=== PATIENT | female | born 1955 | race Caucasian/White ===

== ENCOUNTER → 2016-06-20 | Outpatient (CLI) | payer BC ==
[~2016-06-20] MED LIST: ANT25 PO; BRIN1SUS OPB; BUTA1CAP20 PO; CALCTAB7 PO; CHOLTAB3 PO; CLTP PO; DICL1GEL12 TOP; DICL1GEL28 TOP; DOXE50CA3 PO; ERGO1TAB10 PO; FLUT0.15 NAE; HYDR0.5T PO; HYDR200T5 PO; LSN/10125 PO; MELO15TA4 PO; METH-307 PO; METO-157 PO; MOME50SP5 NAE; MULT-506 PO; NAPR-1169 PO; ONDA4TAB10 SL; OXYC1TAB3 PO; PRLSR20 PO; PRN10125 PO; SNQ50 PO; TIMO0.5S2 OPB; TMPXEOPS OPB; TRAM-10 PO; TRAV0.00 OPB; VLM2 PO
[2016-06-20 17:31] LABS: BASO % 0.4 %; BASO ABS # 0.03 K/uL (0-0.2); COMPLETE YES; HEMATOCRIT 42.2 % (37-47); IG% 0.1 %; LYMPH % 14.7 %; LYMPH ABS # 1.13 K/uL (1.2-3.4); MEAN CELL VOLUME 91.5 fL (80-100); MEAN CORPUSCULAR HEMOGLOBIN 31.5 pg (25-34); MEAN CORPUSCULAR HGB CONC 34.4 g/dl (32-36); MONO % 8.1 %; NEUT % 72.7 %; PLATELET COUNT 182 K/uL (130-400); RED BLOOD COUNT 4.61 M/uL (4.2-5.4); WHITE BLOOD COUNT 7.67 K/uL (4.8-10.8)
[2016-06-20 17:41] LABS: ALT/SGPT 33 U/L (12-78); AST/SGOT 17 U/L (15-37); CREATININE 0.79 mg/dl (0.60-1.20)
[2016-06-20 17:43] LABS: ALKALINE PHOSPHATASE 99 U/L (45-117)
== END | disposition home or self-care (01) ==
LOC: C.LABBFT 11:40
PROVIDERS: ATTEND Internal Medicine Rheumatology
DX: M35.00 Sjogren syndrome, unspecified (principal); L93.2 Other local lupus erythematosus; Z79.899 Other long term (current) drug therapy; Z79.1 Long term (current) use of non-steroidal anti-inflammatories (NSAID)

== ENCOUNTER → 2016-07-18 | Outpatient (CLI) | payer BC ==
--- NOTE | 2016-07-18 10:58 | DIAGNOSTIC IMAGING REPORT ---
LEFT KNEE 3 VIEWS CLINICAL HISTORY: Bilateral knee pain. Sjogren's syndrome. Lupus. COMPARISON: Knee radiograph January 06, 2012. FINDINGS: Alignment of left knee is anatomic. There is no fracture or joint effusion. There is mild medial compartment joint space narrowing. No erosions are identified. IMPRESSION: 1. Mild medial compartment osteoarthritis of the left knee. 2. No fracture or joint effusion. No erosions. Electronically signed by: Farzad Sandy M.D. 07/18/2016 10:56 AM Dictated Date/Time: 07/18/2016 10:56 AM
--- NOTE | 2016-07-18 10:59 | DIAGNOSTIC IMAGING REPORT ---
RIGHT KNEE 3 VIEWS CLINICAL HISTORY: Sjogren syndrome. Cutaneous lupus erythematosus. COMPARISON: Knee radiographs January 06, 2012. FINDINGS: Alignment of the right knee is anatomic. There is no joint effusion or fracture. There is minimal medial compartment joint space narrowing. There is minimal narrowing of the lateral aspect of the patellofemoral compartment. No erosions are identified. IMPRESSION: 1. Minimal osteoarthritis of the medial and patellofemoral compartments of the right knee. 2. No joint effusion. No erosions. Electronically signed by: Farzad Sandy M.D. 07/18/2016 10:57 AM Dictated Date/Time: 07/18/2016 10:57 AM
== END | disposition home or self-care (01) ==
LOC: C.RAD1850 10:13
PROVIDERS: ATTEND Internal Medicine Rheumatology
DX: L93.2 Other local lupus erythematosus (principal); M35.00 Sjogren syndrome, unspecified; M25.562 Pain in left knee; Z79.1 Long term (current) use of non-steroidal anti-inflammatories (NSAID); Z79.899 Other long term (current) drug therapy

== ENCOUNTER → 2016-07-23 | Outpatient (CLI) | payer BC ==
--- NOTE | 2016-07-24 07:40 | MAMMOGRAPHY REPORT ---
BILATERAL DIGITAL SCREENING MAMMOGRAM TOMOSYNTHESIS WITH CAD: 07/23/2016 CLINICAL HISTORY: Routine screening examination. TECHNIQUE: Breast tomosynthesis in addition to standard 2D mammography was performed. Current study was also evaluated with a Computer Aided Detection (CAD) system. COMPARISON: Comparison is made to exams dated: 05/02/2015 mammogram, 04/28/2013 mammogram, 04/29/20 14 mammogram, 04/27/2012 mammogram, 04/24/2011 mammogram, and 04/23/2010 mammogram - [facility]. BREAST COMPOSITION: The tissue of both breasts is heterogeneously dense, which may obscure small ma sses. FINDINGS: The parenchymal pattern is unchanged. No developing mass, architectural distortion or clu ster of suspicious microcalcifications is seen in either breast. IMPRESSION: ACR BI-RADS CATEGORY 2: BENIGN There is no mammographic evidence of malignancy. A 1 year screening mammogram is recommended. The p atient will receive written notification of the results. Approximately 10% of breast cancers are not detected with mammography. A negative mammographic repor t should not delay biopsy if a clinically suggestive mass is present. Desi Parra M.D. ay/:07/23/2016 17:22:11 Draw Machine Operator: Sumi CARLOS(R)(M), [facility] letter sent: Normal 1/2 BI-RADS Code: ACR BI-RADS Category 2: Benign
== END | disposition home or self-care (01) ==
LOC: C.MAMM 10:24
PROVIDERS: ATTEND Obstetrics & Gynecology
DX: Z12.31 Encounter for screening mammogram for malignant neoplasm of breast (principal)

== ENCOUNTER 2016-09-03 15:45 | Inpatient (IN) | payer BC ==
[~2016-09-03] VITALS: Ht 165.1 cm; Wt 103.3 kg
[~2016-09-03 15:45] MED LIST changes: -ANT25 PO; -CALCTAB7 PO; -DICL1GEL12 TOP; -DOXE50CA3 PO; -ERGO1TAB10 PO; -FLUT0.15 NAE; -HYDR200T5 PO; -LSN/10125 PO; -MELO15TA4 PO; -ONDA4TAB10 SL; -TMPXEOPS OPB; -VLM2 PO
[2016-09-03] MEDS ORDERED: PROMETHAZINE HCL INJ 6.25 MG in SODIUM CHLORIDE 0.9% 50ML 50 ML IV STA (16:16)
[2016-09-03] MEDS ORDERED: SODIUM CHLORIDE 0.9% 1000ML 500 ML IV STA (16:16)
[2016-09-03] MEDS ORDERED: SODIUM CHLORIDE 0.9% 1000ML 1,000 ML IV STA (16:16)
[2016-09-03] MEDS ORDERED: MECLIZINE HCL 25 MG TAB PO STA (16:16)
--- NOTE | 2016-09-03 16:21 | EMERGENCY ROOM VISIT NOTE ---
History Report prepared by Musa: Candice Telles Under the Supervision of: Dr. Alfredito Anders M.D. First contact with patient: 16:07 Chief Complaint: DIZZY Stated Complaint: LIGHTHEADED AND NAUSEOUS History of Present Illness The patient is a 61 year old female who presents to the Emergency Room with complaints of intermittent dizziness that began this morning. The patient states that she woke this morning with a stiff neck in the middle of her posterior neck. She states that as she went to sit up this morning and became lightheaded and dizzy. The patient states that she stayed in bed for 30 minutes until her symptoms subsided. She states that she got up and was feeling okay, but then became dizzy again while at adventist. The patient additionally associates nausea and pressured breathing with each dizziness episode. She states that her symptoms are worsened with change of position of her head. The patient states that she had a recent change in her medications, noting that she went from taking 500 mg of Naproxen twice a day to taking Mobic 15 mg daily. She denies any history of vertigo or stroke, but notes that her father had two strokes. The patient notes a history of hypertension, stating that she is on Lisinopril. She notes that she has been having more bowel movements than normal today. The patient denies any chest pain, palpitations, shortness of breath, extremity numbness, or urinary symptoms. Source of History: patient Onset: this morning Position: other (global) Quality: other (dizziness) Timing: intermittent Modifying Factors (Worsening): other (change in position of head) Associated Symptoms: + nausea, No SOB, No chest pain, No numbness, No urinary symptoms Note: Associated Symptoms: lightheaded, stiff neck, pressured breathing Review of Systems See HPI for pertinent positives & negatives. A total of 10 systems reviewed and were otherwise negative. Past Medical & Surgical Medical Problems: (1) Follicular lymphoma (2) Hypertension Family History Stroke Social History Smoking Status: Current Every Day Smoker Alcohol Use: none Drug Use: none Marital Status: Housing Status: lives with family Current/Historical Medications Scheduled Brinzolamide Oph (Azopt Oph), 1 DROP OPB BID Calcium Carbonate-Vitamin D W/ (Caltrate 600 Plus), 1 TAB PO BID Doxepin (Sinequan), 75 MG PO HS Ergocalciferol (Vitamin D2), 400 UNITS PO QAM Hctz/Lisinopril (Lisinopril/Hctz 10/12.5 Mg), 1 TAB PO QAM Hydroxychloroquine Sulfate (Plaquenil), 200 MG PO QAM Meloxicam (Mobic), 15 MG PO QAM Metoclopramide (Reglan), 10 MG PO BID Multivitamin (Multivitamin), 1 TAB PO QAM Omeprazole (Prilosec), 20 MG PO QPM Timolol Maleate (Timolol Gfs 0.5% (Generic For Timoptic-Xe)), 1 DROP OPB BID Travoprost (Travatan Z), 1 DROP OPB HS Scheduled PRN Pvztgaxnfr-Cbufuglhseevo-Kpswt (Butalbital/APAP/Caffeine 50-300-40 mg), 1 TAB PO PRN PRN for Migraine Diclofenac Sodium (Topical) (Voltaren 1% Top Gel), 1 APPLN TOP QID PRN for Pain Fluticasone Propionate (Nasal) (Flonase Allergy Relief), 2 SPRAYS WILLIAM DAILY PRN for ALLERGIC REACTION Methocarbamol (Robaxin), 750 MG PO Q6H PRN for PRN Tramadol (Ultram), 50 MG PO Q8H PRN for Pain Allergies Coded Allergies: Lidocaine (Verified Allergy, Intermediate, "NOVOCAINE" FULL BODY RASH, ) Procaine (Verified Allergy, Intermediate, rash over entire body, 09/03/16) Penicillins (Verified Allergy, Mild, RASH, 09/03/16) Clarithromycin (Verified Adverse Reaction, Intermediate, G I UPSET-FELT AWFUL, 09/03/16) Codeine (Verified Adverse Reaction, Intermediate, SEVERE HEADACHE, 09/03/16 ) Meperidine (Verified Adverse Reaction, Intermediate, SEVERE HEADACHE, 09/03) Sulfa Antibiotics (Verified Adverse Reaction, Intermediate, G I UPSET FELT AWFUL, 09/03/16) Physical Exam Vital Signs Date Time Temp Pulse Resp B/P Pulse Ox O2 Delivery O2 Flow Rate FiO2 09/03/16 20:25 88 09/03/16 20:15 86 14 99 09/03/16 20:03 177/103 09/03/16 20:00 85 13 173/103 99 09/03/16 19:46 173/100 09/03/16 19:45 87 13 98 09/03/16 19:31 181/107 09/03/16 19:30 80 17 99 09/03/16 19:16 179/95 09/03/16 19:15 83 19 99 09/03/16 19:00 79 12 168/116 98 09/03/16 18:52 76 20 166/125 97 Room Air 09/03/16 18:52 166/125 09/03/16 18:30 71 17 213/130 98 09/03/16 18:15 73 7 97 09/03/16 18:00 72 12 95 09/03/16 17:54 74 17 161/117 97 Room Air 09/03/16 16:21 81 09/03/16 15:46 37.0 79 16 190/129 95 Physical Exam GENERAL: Patient is in no acute distress. HEENT: No acute trauma, normocephalic atraumatic, pupils are equal and reactive to light, no nystagmus, mucous membranes moist, no nasal congestion, no scleral icterus. NECK: No stridor, no adenopathy, no meningismus, trachea is midline. LUNGS: Clear to auscultation bilaterally, no wheeze, no rhonchi, breath sounds equal. HEART: Without murmurs gallops or rubs, regular rate and rhythm. ABDOMEN: Soft, nontender, bowel sounds positive, no hernias, no peritonitis. EXTREMITIES: No cyanosis or edema, full range of motion of all the joints without pain or difficulty, no signs for acute trauma. NEUROLOGIC: Oriented x 3, no acute motor or sensory deficits, no focal weakness. No pronator drift or cerebellar dysfunction. No speech slur or facial droop. Symptoms worsened with certain head movements. SKIN: No rash, no jaundice, no diaphoresis. Medical Decision & Procedures ER Provider Diagnostic Interpretation: CT results as stated below per my review and radiologist interpretation: CT SCAN OF THE BRAIN WITHOUT IV CONTRAST CLINICAL HISTORY: Generalized weakness. Change in mental status. COMPARISON STUDY: No priors. TECHNIQUE: Unenhanced axial CT scan of the brain is performed from the vertex to the skull base. Automated dose control exposure was utilized. CT DOSE: 537.48 mGy.cm FINDINGS: Brain parenchyma: The brain parenchyma is normal in appearance. There is no hemorrhage, mass effect, or evidence of acute territorial ischemia by CT criteria. Mcfarlane-white matter is preserved. No extra-axial fluid collection is seen. Ventricles, sulci, cisterns: Normal in configuration. Intracranial vasculature: There is minimal atherosclerotic calcification of the cavernous carotid and vertebral arteries. Calvarium: Unremarkable. Sinuses and mastoids: The visualized paranasal sinuses are clear. There are small mastoid effusions. Orbits: The bony orbits are grossly intact. There are bilateral ocular lens implants. IMPRESSION: There is no hemorrhage, mass effect, or evidence of acute territorial ischemia by CT criteria. Electronically signed by: Alfredito Esposito M.D. 09/03/2016 5:59 PM Dictated Date/Time: 09/03/2016 5:[address] ANGIOGRAM OF THE NECK CLINICAL HISTORY: Dizziness. Generalized weakness. Neck pain. COMPARISON STUDY: No priors. TECHNIQUE: Following the IV administration of 92 of Optiray 320, CT angiogram of the neck was performed from the aortic arch to the skull base. Images are reviewed in the axial, sagittal, and coronal planes. 3-D MIPS images are created and assessed. IV contrast was administered without complication. All measurements were calculated based on NASCET criteria. CT DOSE: 445.33 mGy.cm FINDINGS: Thoracic aorta: Visualized portions of the thoracic aorta are normal in caliber. The aortic arch demonstrates standard 3-vessel anatomy. Subclavian arteries: Widely patent bilaterally. Right carotid arterial system: The right common carotid artery is widely patent, as are the right internal and external carotid arteries. The petrous right internal carotid artery appears uncovered at the level of the middle ear. Left carotid arterial system: The left common carotid artery is widely patent, as are the left anterolateral carotid arteries. The petrous left internal carotid artery appears uncovered at the level of the middle ear. Vertebral arteries: The vertebral arteries are widely patent bilaterally and codominant. Intracranial vasculature: The partially imaged intracranial arteries at the skull base are normal in appearance. Brain parenchyma: The visualized brain parenchyma the skull base is within normal limits. Lung apices: Partially visualized upper lobe lung parenchyma appears clear. Soft tissues: The visualized pharyngeal soft tissues are normal in appearance noting angiographic phase technique. The oropharyngeal airway appears widely patent. The salivary and thyroid glands are normal in appearance. Shotty cervical lymph nodes are incidentally noted. Skeletal structures: The skeletal structures are osteopenic. The visualized calvarium at the skull base appears intact. The imaged cervical spine is within normal limits noting mild spondylotic change. A bone island is incidentally noted in the left lamina of C6. Sinuses and mastoids: The visualized paranasal sinuses are clear. There are small mastoid effusions IMPRESSION: Unremarkable CT angiogram of the neck. Electronically signed by: Alfredito Esposito M.D. 09/03/2016 6:16 PM Dictated Date/Time: 09/03/2016 6:06 PM Laboratory Results 09/03/16 16:00 Red Blood Count 4.94, Mean Corpuscular Volume 90.9, Mean Corpuscular Hemoglobin 31.4, Mean Corpuscular Hemoglobin Concent 34.5, Mean Platelet Volume 10.8, Neutrophils (%) (Auto) 59.8, Lymphocytes (%) (Auto) 27.5, Monocytes (%) (Auto) 7.6, Eosinophils (%) (Auto) 4.1, Basophils (%) (Auto) 0.8, Neutrophils # (Auto) 3.68, Lymphocytes # (Auto) 1.69, Monocytes # (Auto) 0.47, Eosinophils # (Auto) 0.25, Basophils # (Auto) 0.05 09/03/16 16:00 Test 09/03/16 16:00 09/03/16 17:05 White Blood Count 6.15 K/uL (4.8-10.8) Red Blood Count 4.94 M/uL (4.2-5.4) Hemoglobin 15.5 g/dL (12.0-16.0) Hematocrit 44.9 % (37-47) Mean Corpuscular Volume 90.9 fL (80-100) Mean Corpuscular Hemoglobin 31.4 pg (25-34) Mean Corpuscular Hemoglobin Concent 34.5 g/dl (32-36) Platelet Count 206 K/uL (130-400) Mean Platelet Volume 10.8 fL (7.4-10.4) Neutrophils (%) (Auto) 59.8 % Lymphocytes (%) (Auto) 27.5 % Monocytes (%) (Auto) 7.6 % Eosinophils (%) (Auto) 4.1 % Basophils (%) (Auto) 0.8 % Neutrophils # (Auto) 3.68 K/uL (1.4-6.5) Lymphocytes # (Auto) 1.69 K/uL (1.2-3.4) Monocytes # (Auto) 0.47 K/uL (0.11-0.59) Eosinophils # (Auto) 0.25 K/uL (0-0.5) Basophils # (Auto) 0.05 K/uL (0-0.2) RDW Standard Deviation 42.8 fL (36.4-46.3) RDW Coefficient of Variation 13.0 % (11.5-14.5) Immature Granulocyte % (Auto) 0.2 % Immature Granulocyte # (Auto) 0.01 K/uL (0.00-0.02) Anion Gap 8.0 mmol/L (3-11) Est Creatinine Clear Calc Drug Dose 91.9 ml/min Estimated GFR () 98.3 Estimated GFR (Non- 84.8 BUN/Creatinine Ratio 15.8 (10-20) Calcium Level 9.4 mg/dl (8.5-10.1) Total Bilirubin 0.4 mg/dl (0.2-1) Aspartate Amino Transf (AST/SGOT) 20 U/L (15-37) Alanine Aminotransferase (ALT/SGPT) 37 U/L (12-78) Alkaline Phosphatase 114 U/L (45-117) Total Protein 8.2 gm/dl (6.4-8.2) Albumin 4.2 gm/dl (3.4-5.0) Globulin 4.0 gm/dl (2.5-4.0) Albumin/Globulin Ratio 1.1 (0.9-2) Thyroid Stimulating Hormone (TSH) 0.605 uIu/ml (0.300-4.500) Urine Color YELLOW Urine Appearance CLEAR (CLEAR) Urine pH 8.0 (4.5-7.5) Urine Specific [place] 1.007 (1.000-1.030) Urine Protein NEG (NEG) Urine Glucose (UA) NEG (NEG) Urine Ketones NEG (NEG) Urine Occult Blood NEG (NEG) Urine Nitrite NEG (NEG) Urine Bilirubin NEG (NEG) Urine Urobilinogen NEG (NEG) Urine Leukocyte Esterase SMALL (NEG) Urine WBC (Auto) 1-5 /hpf (0-5) Urine RBC (Auto) 0-4 /hpf (0-4) Urine Hyaline Casts (Auto) 0 /lpf (0-5) Urine Epithelial Cells (Auto) 10-20 /lpf (0-5) Urine Bacteria (Auto) NEG (NEG) Laboratory results reviewed by me. Medications Administered Medications (Trade) Dose Ordered Sig/Leandro Route Start Time Stop Time Status Last Admin Dose Admin Sodium Chloride 500 ml @ 999 mls/hr Q31M STAT IV 09/03/16 16:16 09/03/16 16:46 DC 09/03/16 16:36 999 MLS/HR Sodium Chloride (Nss 1000ml) 1,000 ml @ 200 mls/hr Q5H STAT IV 09/03/16 16:16 09/03/16 21:15 09/03/16 16:16 200 MLS/HR Meclizine HCl 25 mg 25 mg NOW STAT PO 09/03/16 16:16 09/03/16 16:19 DC 09/03/16 16:35 25 MG Promethazine HCl/ Sodium Chloride (Phenergan Inj/ Nss 50ml) 50.25 ml @ 204 mls/hr NOW STAT IV 09/03/16 16:16 09/03/16 16:30 DC 09/03/16 16:34 204 MLS/HR Hydralazine HCl (HydrALAZINE INJ) 10 mg NOW STAT IV 09/03/16 18:32 09/03/16 18:33 DC 09/03/16 18:48 10 MG Lorazepam (Ativan Inj) 0.5 mg NOW STAT IV 09/03/16 18:33 09/03/16 18:34 DC 09/03/16 18:48 0.5 MG Labetalol HCl (Normodyne IV) 10 mg NOW STAT IV 09/03/16 20:04 09/03/16 20:05 DC 09/03/16 20:27 10 MG ECG Indication: other (dizziness) Rate (beats per minute): 75 Rhythm: normal sinus Findings: no acute ischemic change, no ectopy ED Course 1607: The patient was evaluated in room B9. A complete history and physical exam was performed. 1616: Ordered Promethazine HCl 6.25 mg/Sodium Chloride 50.25 ml @ 204 mls/hr IV , Antivert Tab 25 mg PO, Sodium Chloride 1000 ml @ 200 mls/hr IV, Sodium Chloride 500 ml @ 999 mls/hr IV. 1828: I reevaluated the patient and she is still symptomatic, but feeling a little bit better. 1832: Ordered Hydralazine HCl 10 mg IV, Ativan Inj 0.5 mg IV. 1929: I reevaluated the patient and she is not feeling better. I discussed the exam findings with her and I discussed the treatment plan. She verbalized complete understanding and agreement. She will be evaluated or further treatment. 2003: Ordered Labetalol HCl 10 mg IV. 2019: I discussed the patients case with MYNOR Jones. He is going to evaluate the patient for further treatment. Medical Decision The patient is a 61 year old female who presents to the ED with complaints of dizziness. Differential diagnoses considered include vertigo, stroke, intracranial bleeding, anemia, electrolyte imbalance, UTI, dehydration. There is no leukocytosis, no worrisome anemia. No significant electrolyte abnormality, kidney failure, hepatitis. The patient appears to be in a euthyroid state. Urinalysis does not show infection. EKG shows a normal sinus rhythm, no acute ischemia. Brain CT shows no acute bleed or mass effect. CT angiogram of the neck does not show any evidence for dissection. On exam, the patient did not have any focal neurologic deficits. The patient was hypertensive and did require a dose of IV hydralazine and IV labetalol. She received IV saline. She was given IV Phenergan, IV Ativan, oral meclizine. Despite these medications, she remained off balance and quite dizzy with any movement. She had a hard time getting to the bathroom and back to her stretcher. I do think further workup in the hospital is warranted. Certainly posterior circulation stroke is a possibility, severe vertigo is possible as well. The high blood pressure may be contributing to her symptoms or possibly a result of her symptoms. I did speak to case management. I talked to the patient and her family. The on-call hospitalist was consulted. Consults Time Called: 1932 Consulting Physician: MYNOR Jones Returned Call: 2019 I discussed the patients case with MYNOR Jones. He is going to evaluate the patient for further treatment. Impression Primary Impression: Stroke-like symptoms Additional Impressions: Dizziness Hypertension Scribe Attestation The scribe's documentation has been prepared under my direction and personally reviewed by me in its entirety. I confirm that the note above accurately reflects all work, treatment, procedures, and medical decision making performed by me. Departure Information Dispostion Being Evaluated By Hospitalist Referrals Korey Allison M.D. (PCP) Problem Qualifiers
[2016-09-03 16:27] LABS: BASO % 0.8 %; BASO ABS # 0.05 K/uL (0-0.2); COMPLETE YES; EOS % 4.1 %; HEMATOCRIT 44.9 % (37-47); IG% 0.2 %; LYMPH % 27.5 %; LYMPH ABS # 1.69 K/uL (1.2-3.4); MEAN CELL VOLUME 90.9 fL (80-100); MEAN CORPUSCULAR HEMOGLOBIN 31.4 pg (25-34); MEAN CORPUSCULAR HGB CONC 34.5 g/dl (32-36); MEAN PLATELET VOLUME 10.8 fL (7.4-10.4); MONO % 7.6 %; NEUT % 59.8 %; PLATELET COUNT 206 K/uL (130-400); RED BLOOD COUNT 4.94 M/uL (4.2-5.4); WHITE BLOOD COUNT 6.15 K/uL (4.8-10.8)
[2016-09-03] MEDS ORDERED: OPTIRAY 320 IV PRN (16:30)
[2016-09-03] MEDS ORDERED: DOXE50CA3 PO (16:34)
[2016-09-03] MEDS ORDERED: DICL1GEL12 TOP (16:34)
[2016-09-03] MEDS ORDERED: LSN/10125 PO (16:34)
[2016-09-03] MEDS ORDERED: CALCTAB7 PO (16:34)
[2016-09-03] MEDS ORDERED: FLUT0.15 NAE (16:34)
[2016-09-03] MEDS ORDERED: TMPXEOPS OPB (16:34)
[2016-09-03] MEDS ORDERED: MELO15TA4 PO (16:34)
[2016-09-03] MEDS ORDERED: HYDR200T5 PO (16:34)
[2016-09-03] MEDS ORDERED: ERGO1TAB10 PO (16:34)
[2016-09-03 16:56] LABS: ALB/GLOB RATIO 1.1 (0.9-2); BUN/CREATININE RATIO 15.8 (10-20); CALCIUM 9.4 mg/dl (8.5-10.1); CREATININE 0.75 mg/dl (0.60-1.20); POTASSIUM 3.6 mmol/L (3.5-5.1); THYROID STIMULATING HORMONE 0.605 uIu/ml (0.300-4.500)
[2016-09-03 17:50] LABS: URINE APPEARANCE CLEAR (CLEAR); URINE BILIRUBIN NEG (NEG); URINE COLOR YELLOW; URINE NITRITE NEG (NEG); URINE SPECIFIC GRAVITY 1.007 (1.000-1.030); UROBILINOGEN NEG (NEG); ZZUR CULT IF INDIC CLEAN CATCH NO
[2016-09-03 17:59] LABS: MANUAL MICROSCOPIC REQUIRED? NO; REVIEW REQ? NO
--- NOTE | 2016-09-03 18:01 | DIAGNOSTIC IMAGING REPORT ---
CT SCAN OF THE BRAIN WITHOUT IV CONTRAST CLINICAL HISTORY: Generalized weakness. Change in mental status. COMPARISON STUDY: No priors. TECHNIQUE: Unenhanced axial CT scan of the brain is performed from the vertex to the skull base. Automated dose control exposure was utilized. CT DOSE: 537.48 mGy.cm FINDINGS: Brain parenchyma: The brain parenchyma is normal in appearance. There is no hemorrhage, mass effect, or evidence of acute territorial ischemia by CT criteria. Mcfarlane-white matter is preserved. No extra-axial fluid collection is seen. Ventricles, sulci, cisterns: Normal in configuration. Intracranial vasculature: There is minimal atherosclerotic calcification of the cavernous carotid and vertebral arteries. Calvarium: Unremarkable. Sinuses and mastoids: The visualized paranasal sinuses are clear. There are small mastoid effusions. Orbits: The bony orbits are grossly intact. There are bilateral ocular lens implants. IMPRESSION: There is no hemorrhage, mass effect, or evidence of acute territorial ischemia by CT criteria. Electronically signed by: Alfredito Esposito M.D. 09/03/2016 5:59 PM Dictated Date/Time: 09/03/2016 5:51 PM
--- NOTE | 2016-09-03 18:18 | DIAGNOSTIC IMAGING REPORT ---
CT ANGIOGRAM OF THE NECK CLINICAL HISTORY: Dizziness. Generalized weakness. Neck pain. COMPARISON STUDY: No priors. TECHNIQUE: Following the IV administration of 92 of Optiray 320, CT angiogram of the neck was performed from the aortic arch to the skull base. Images are reviewed in the axial, sagittal, and coronal planes. 3-D MIPS images are created and assessed. IV contrast was administered without complication. All measurements were calculated based on NASCET criteria. CT DOSE: 445.33 mGy.cm FINDINGS: Thoracic aorta: Visualized portions of the thoracic aorta are normal in caliber. The aortic arch demonstrates standard 3-vessel anatomy. Subclavian arteries: Widely patent bilaterally. Right carotid arterial system: The right common carotid artery is widely patent, as are the right internal and external carotid arteries. The petrous right internal carotid artery appears uncovered at the level of the middle ear. Left carotid arterial system: The left common carotid artery is widely patent, as are the left anterolateral carotid arteries. The petrous left internal carotid artery appears uncovered at the level of the middle ear. Vertebral arteries: The vertebral arteries are widely patent bilaterally and codominant. Intracranial vasculature: The partially imaged intracranial arteries at the skull base are normal in appearance. Brain parenchyma: The visualized brain parenchyma the skull base is within normal limits. Lung apices: Partially visualized upper lobe lung parenchyma appears clear. Soft tissues: The visualized pharyngeal soft tissues are normal in appearance noting angiographic phase technique. The oropharyngeal airway appears widely patent. The salivary and thyroid glands are normal in appearance. Shotty cervical lymph nodes are incidentally noted. Skeletal structures: The skeletal structures are osteopenic. The visualized calvarium at the skull base appears intact. The imaged cervical spine is within normal limits noting mild spondylotic change. A bone island is incidentally noted in the left lamina of C6. Sinuses and mastoids: The visualized paranasal sinuses are clear. There are small mastoid effusions IMPRESSION: Unremarkable CT angiogram of the neck. Electronically signed by: Alfredito Esposito M.D. 09/03/2016 6:16 PM Dictated Date/Time: 09/03/2016 6:06 PM
[2016-09-03] MEDS ORDERED: HydrALAZINE HCL 20 MG/ML VIAL IV STA (18:32)
[2016-09-03] MEDS ORDERED: LORAZEPAM 2 MG/ML 1 ML VIAL IV STA ×2 (18:33→22:54)
[2016-09-03] MEDS ORDERED: LABETALOL HCL IV 5 MG/ML 20ML IV STA (20:04)
[2016-09-03] MEDS ORDERED: ALUMINUM/MAGNESIUM/SIMETH (MAALOX MAX) 30 ML UDC PO PRN (22:15)
[2016-09-03] MEDS ORDERED: MAGNESIUM HYDROXIDE SUSP 30 ML UDC PO PRN (22:15)
[2016-09-03] MEDS ORDERED: PHARMACIST DISCHARGE MED REC CONSULT PRN (22:15)
[2016-09-03] MEDS ORDERED: ONDANSETRON INJ 2 MG/ML 2 ML VIAL IV STA (22:54)
[2016-09-03] MEDS: ONDANSETRON INJ 2 MG/ML 2 ML VIAL IV PRN (22:54)
[2016-09-03] MEDS ORDERED: LORAZEPAM 2 MG/ML 1 ML VIAL ONE (22:57)
[2016-09-03] MEDS ORDERED: GADAVIST IV PRN (23:45)
[2016-09-04] VITALS (11 sets, daily range): BP systolic 95–166; BP diastolic 42–107; PULSE 70–96; TEMP 36.4–36.8; O2SAT 93–99; Ht 165.1 cm; Wt 103.3 kg
--- NOTE | 2016-09-04 00:33 | History and Physical ---
History & Physical Date & Time of Service: Sep 03, 2016 at 2200 Chief Complaint: Lightheaded And Nauseous Primary Care Physician: Korey Allison M.D. History of Present Illness Source: patient, spouse 61-year-old female with past medical history of hypertension, follicular lymphoma, glaucoma, lupus arthritis presented to the ER with complaints of dizziness and lightheadedness which started this morning and has been progressively getting worse throughout the day. The patient stated that she woke up this morning and felt dizzy and felt as if the room was spinning. The dizziness was associated with postural changes but she denied any syncope or near syncopal attacks. She also complained about neck stiffness but denied any headaches, fevers or chills, upper respiratory tract infection like symptoms, exposure to sick contacts. She also complained about nausea but denied any vomiting. Denied any weakness, numbness or tingling, slurring of speech, blurriness of vision or changes in gait. She denied any chest pain, shortness of breath, palpitations. Denied any rashes or tick bites recently. She denied any ear pain, hearing loss, tinnitus but she does have myringotomy tubes in both ears. She does have a history of migraines occasionally. she denied any history of similar symptoms in the past. She does have a family history of stroke and her father had stroke at age of 65 and again when 80. She states that her blood pressures is usually fairly well controlled with hydrochlorothiazide/lisinopril. Past Medical/Surgical History Medical Problems: (1) Follicular lymphoma Status: Chronic (2) Hypertension Status: Chronic Family History Stroke Social History Smoking Status: Current Every Day Smoker Drug Use: none Marital Status: Immunizations History of Influenza Vaccine: Yes History of Tetanus Vaccine?: Unknown History of Pneumococcal: Yes History of Hepatitis B Vaccine: No Multi-Drug Resistant Organisms History of MDRO: No Allergies Coded Allergies: Lidocaine (Verified Allergy, Intermediate, "NOVOCAINE" FULL BODY RASH, ) Procaine (Verified Allergy, Intermediate, rash over entire body, 09/03/16) Penicillins (Verified Allergy, Mild, RASH, 09/03/16) Clarithromycin (Verified Adverse Reaction, Intermediate, G I UPSET-FELT AWFUL, 09/03/16) Codeine (Verified Adverse Reaction, Intermediate, SEVERE HEADACHE, 09/03/16 ) Meperidine (Verified Adverse Reaction, Intermediate, SEVERE HEADACHE, 09/03) Sulfa Antibiotics (Verified Adverse Reaction, Intermediate, G I UPSET FELT AWFUL, 09/03/16) Home Medications Scheduled Brinzolamide Oph (Azopt Oph), 1 DROP OPB BID Calcium Carbonate-Vitamin D W/ (Caltrate 600 Plus), 1 TAB PO BID Doxepin (Sinequan), 75 MG PO HS Ergocalciferol (Vitamin D2), 400 UNITS PO QAM Hctz/Lisinopril (Lisinopril/Hctz 10/12.5 Mg), 1 TAB PO QAM Hydroxychloroquine Sulfate (Plaquenil), 200 MG PO QAM Meloxicam (Mobic), 15 MG PO QAM Metoclopramide (Reglan), 10 MG PO BID Multivitamin (Multivitamin), 1 TAB PO QAM Omeprazole (Prilosec), 20 MG PO QPM Ondasetron Odt (Zofran Odt), 4 MG SL Q6H Timolol Maleate (Timolol Gfs 0.5% (Generic For Timoptic-Xe)), 1 DROP OPB BID Travoprost (Travatan Z), 1 DROP OPB HS Scheduled PRN Hqnpmjsjox-Brycpsgmwatxh-Juagg (Butalbital/APAP/Caffeine 50-300-40 mg), 1 TAB PO PRN PRN for Migraine Diazepam (Diazepam), 2 MG PO TID PRN for Dizziness or Vertigo Diclofenac Sodium (Topical) (Voltaren 1% Top Gel), 1 APPLN TOP QID PRN for Pain Fluticasone Propionate (Nasal) (Flonase Allergy Relief), 2 SPRAYS WILLIAM DAILY PRN for ALLERGIC REACTION Meclizine HCl (Meclizine HCl), 25 MG PO TID PRN for Dizziness or Vertigo Methocarbamol (Robaxin), 750 MG PO Q6H PRN for PRN Tramadol (Ultram), 50 MG PO Q8H PRN for Pain Review of Systems Constitutional: No chills, No fever Eyes: No worsening of vision ENT: No hearing loss Respiratory: No cough, No shortness of breath, No sputum Cardiovascular: No chest pain Abdomen: + nausea, No diarrhea, No pain, No vomiting Musculoskeletal: No joint pain Genitourinary - Female: No dysuria, No urinary frequency Neurologic: + vertigo, No numbness/tingling, No paralysis, No weakness Psychiatric: No depression symptoms Endocrine: No fatigue Hematologic / Lymphatic: No abnormal bleeding/bruising Integumentary: No rash Physical Exam Vital Signs Date Time Temp Pulse Resp B/P Pulse Ox O2 Delivery O2 Flow Rate FiO2 09/04/16 00:20 74 16 133/76 98 Room Air 09/03/16 22:20 83 12 09/03/16 22:15 140/80 09/03/16 22:05 88 19 09/03/16 22:01 129/68 09/03/16 21:50 82 17 09/03/16 21:45 182/102 09/03/16 21:35 84 23 09/03/16 21:31 159/92 09/03/16 21:20 83 16 09/03/16 21:15 168/113 09/03/16 21:05 79 09/03/16 21:01 144/88 09/03/16 20:50 76 15 09/03/16 20:46 152/91 09/03/16 20:30 161/86 09/03/16 20:25 166/94 09/03/16 20:25 88 09/03/16 20:20 86 13 98 09/03/16 20:15 86 14 99 09/03/16 20:03 177/103 09/03/16 20:00 85 13 173/103 99 09/03/16 19:46 173/100 09/03/16 19:45 87 13 98 09/03/16 19:31 181/107 09/03/16 19:30 80 17 99 09/03/16 19:16 179/95 09/03/16 19:15 83 19 99 09/03/16 19:00 79 12 168/116 98 09/03/16 18:52 76 20 166/125 97 Room Air 09/03/16 18:52 166/125 09/03/16 18:30 71 17 213/130 98 09/03/16 18:15 73 7 97 09/03/16 18:00 72 12 95 09/03/16 17:54 74 17 161/117 97 Room Air 09/03/16 16:21 81 09/03/16 15:46 37.0 79 16 190/129 95 General Appearance: WD/WN, + mild distress Head: normocephalic, atraumatic Eyes: normal inspection ENT: normal ENT inspection, + pertinent finding (myringotomy tubes bilaterally) Neck: supple Respiratory/Chest: chest non-tender, lungs clear, normal breath sounds, no respiratory distress, no accessory muscle use Cardiovascular: regular rate, rhythm Abdomen/GI: normal bowel sounds, non tender, soft Extremities/Musculoskelatal: no pedal edema 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, no motor/sensory deficits, alert, normal mood/affect, oriented x 3 Skin: normal color, warm/dry Diagnostics Laboratory Results Results Past 24 Hours Test 09/03/16 16:00 09/03/16 17:05 Range/Units White Blood Count 6.15 4.8-10.8 K/uL Red Blood Count 4.94 4.2-5.4 M/uL Hemoglobin 15.5 12.0-16.0 g/dL Hematocrit 44.9 37-47 % Mean Corpuscular Volume 90.9 80-100 fL Mean Corpuscular Hemoglobin 31.4 25-34 pg Mean Corpuscular Hemoglobin Concent 34.5 32-36 g/dl Platelet Count 206 130-400 K/uL Mean Platelet Volume 10.8 7.4-10.4 fL Neutrophils (%) (Auto) 59.8 % Lymphocytes (%) (Auto) 27.5 % Monocytes (%) (Auto) 7.6 % Eosinophils (%) (Auto) 4.1 % Basophils (%) (Auto) 0.8 % Neutrophils # (Auto) 3.68 1.4-6.5 K/uL Lymphocytes # (Auto) 1.69 1.2-3.4 K/uL Monocytes # (Auto) 0.47 0.11-0.59 K/uL Eosinophils # (Auto) 0.25 0-0.5 K/uL Basophils # (Auto) 0.05 0-0.2 K/uL RDW Standard Deviation 42.8 36.4-46.3 fL RDW Coefficient of Variation 13.0 11.5-14.5 % Immature Granulocyte % (Auto) 0.2 % Immature Granulocyte # (Auto) 0.01 0.00-0.02 K/uL Sodium Level 142 136-145 mmol/L Potassium Level 3.6 3.5-5.1 mmol/L Chloride Level 106 98-107 mmol/L Carbon Dioxide Level 28 21-32 mmol/L Anion Gap 8.0 3-11 mmol/L Blood Urea Nitrogen 12 7-18 mg/dl Creatinine 0.75 0.60-1.20 mg/dl Est Creatinine Clear Calc Drug Dose 91.9 ml/min Estimated GFR () 98.3 Estimated GFR (Non- 84.8 BUN/Creatinine Ratio 15.8 10-20 Random Glucose 98 70-99 mg/dl Calcium Level 9.4 8.5-10.1 mg/dl Total Bilirubin 0.4 0.2-1 mg/dl Aspartate Amino Transf (AST/SGOT) 20 15-37 U/L Alanine Aminotransferase (ALT/SGPT) 37 12-78 U/L Alkaline Phosphatase 114 45-117 U/L Total Protein 8.2 6.4-8.2 gm/dl Albumin 4.2 3.4-5.0 gm/dl Globulin 4.0 2.5-4.0 gm/dl Albumin/Globulin Ratio 1.1 0.9-2 Thyroid Stimulating Hormone (TSH) 0.605 0.300-4.500 uIu/ml Urine Color YELLOW Urine Appearance CLEAR CLEAR Urine pH 8.0 4.5-7.5 Urine Specific [place] 1.007 1.000-1.030 Urine Protein NEG NEG Urine Glucose (UA) NEG NEG Urine Ketones NEG NEG Urine Occult Blood NEG NEG Urine Nitrite NEG NEG Urine Bilirubin NEG NEG Urine Urobilinogen NEG NEG Urine Leukocyte Esterase SMALL NEG Urine WBC (Auto) 1-5 0-5 /hpf Urine RBC (Auto) 0-4 0-4 /hpf Urine Hyaline Casts (Auto) 0 0-5 /lpf Urine Epithelial Cells (Auto) 10-20 0-5 /lpf Urine Bacteria (Auto) NEG NEG Diagnostic Radiology CT SCAN OF THE BRAIN WITHOUT IV CONTRAST CLINICAL HISTORY: Generalized weakness. Change in mental status. COMPARISON STUDY: No priors. TECHNIQUE: Unenhanced axial CT scan of the brain is performed from the vertex to the skull base. Automated dose control exposure was utilized. CT DOSE: 537.48 mGy.cm FINDINGS: Brain parenchyma: The brain parenchyma is normal in appearance. There is no hemorrhage, mass effect, or evidence of acute territorial ischemia by CT criteria. [place]-white matter is preserved. No extra-axial fluid collection is seen. Ventricles, sulci, cisterns: Normal in configuration. Intracranial vasculature: There is minimal atherosclerotic calcification of the cavernous carotid and vertebral arteries. Calvarium: Unremarkable. Sinuses and mastoids: The visualized paranasal sinuses are clear. There are small mastoid effusions. Orbits: The bony orbits are grossly intact. There are bilateral ocular lens implants. IMPRESSION: There is no hemorrhage, mass effect, or evidence of acute territorial ischemia by CT criteria. Electronically signed by: Alfredito Esposito M.D. 09/03/2016 5:59 PM Dictated Date/Time: 09/03/2016 5:[address] ANGIOGRAM OF THE NECK CLINICAL HISTORY: Dizziness. Generalized weakness. Neck pain. COMPARISON STUDY: No priors. TECHNIQUE: Following the IV administration of 92 of Optiray 320, CT angiogram of the neck was performed from the aortic arch to the skull base. Images are reviewed in the axial, sagittal, and coronal planes. 3-D MIPS images are created and assessed. IV contrast was administered without complication. All measurements were calculated based on NASCET criteria. CT DOSE: 445.33 mGy.cm FINDINGS: Thoracic aorta: Visualized portions of the thoracic aorta are normal in caliber. The aortic arch demonstrates standard 3-vessel anatomy. Subclavian arteries: Widely patent bilaterally. Right carotid arterial system: The right common carotid artery is widely patent, as are the right internal and external carotid arteries. The petrous right internal carotid artery appears uncovered at the level of the middle ear. Left carotid arterial system: The left common carotid artery is widely patent, as are the left anterolateral carotid arteries. The petrous left internal carotid artery appears uncovered at the level of the middle ear. Vertebral arteries: The vertebral arteries are widely patent bilaterally and codominant. Intracranial vasculature: The partially imaged intracranial arteries at the skull base are normal in appearance. Brain parenchyma: The visualized brain parenchyma the skull base is within normal limits. Lung apices: Partially visualized upper lobe lung parenchyma appears clear. Soft tissues: The visualized pharyngeal soft tissues are normal in appearance noting angiographic phase technique. The oropharyngeal airway appears widely patent. The salivary and thyroid glands are normal in appearance. [place] cervical lymph nodes are incidentally noted. Skeletal structures: The skeletal structures are osteopenic. The visualized calvarium at the skull base appears intact. The imaged cervical spine is within normal limits noting mild spondylotic change. A bone island is incidentally noted in the left lamina of C6. Sinuses and mastoids: The visualized paranasal sinuses are clear. There are small mastoid effusions IMPRESSION: Unremarkable CT angiogram of the neck. Electronically signed by: Alfredito Esposito M.D. 09/03/2016 6:16 PM Dictated Date/Time: 09/03/2016 6:06 PM EKG Normal sinus rhythm, no ectopy noted, no ischemic changes Impression Assessment and Plan 61-year-old female with past medical history of hypertension, follicular lymphoma, glaucoma, lupus arthritis presented to the ER with complaints of dizziness and lightheadedness which started this morning and has been progressively getting worse throughout the day. She is being evaluated for potential stroke though her only symptoms have been dizziness and uncontrolled hypertension. Differentials were stroke, completed migraine, vertebrobasilar insufficiency, vertigo Dizziness: - Head CT: There is no hemorrhage, mass effect, or evidence of acute territorial ischemia by CT criteria. - CTA neck: Unremarkable - MRI brain, MRA head ordered - Neurology consult - Meclizine , Zofran as needed Hypertensive urgency: Blood pressures have been elevated since admission ranging between 173-213/ 100 -130 - She received IV hydralazine and IV labetalol in the ER - Hydralazine 10 mg every 6 hours as needed - Continue hydrochlorothiazide/lisinopril Possible UTI: - UA positive for small leuk esterase - Urine culture ordered Glaucoma: - Continue home meds Lupus arthritis: Continue Plaquenil Follicular lymphoma: Follows with Dr. Roldan, stable for now DVT prophylaxis: Heparin subcutaneous Full code Disposition: Admitted to telemetry, monitor for any strokelike symptoms Level of Care Telemetry Resuscitation Status FULL RESUSCITATION VTE Prophylaxis VTE Risk Assessment Done? Y/N: Yes Risk Level: Moderate Given or contraindicated: Unfractionated heparin SQ Resident Tracking Resident Involvement: Resident Care Provided Care Provided: Adult Hospital Medicine Assessment and Plan Attending Addendum: I have physically seen and examined this patient, have directed their medical care, have supervised the medical residents activities, and agree with the H&P as noted above, with the following changes: NONE
[2016-09-04] MEDS ORDERED: IBUPROFEN 200 MG TAB PO STA (04:30)
[2016-09-04] MEDS ORDERED: MECLIZINE HCL 25 MG TAB PO PRN ×2 (04:30→11:45)
[2016-09-04] MEDS ORDERED: HydrALAZINE HCL 20 MG/ML VIAL IV. PRN (05:15)
[2016-09-04 06:19] LABS: BASO % 0.4 %; BASO ABS # 0.02 K/uL (0-0.2); COMPLETE YES; EOS % 3.6 %; HEMATOCRIT 44.3 % (37-47); IG% 0.2 %; LYMPH % 33.5 %; LYMPH ABS # 1.77 K/uL (1.2-3.4); MEAN CELL VOLUME 92.7 fL (80-100); MEAN CORPUSCULAR HEMOGLOBIN 30.8 pg (25-34); MEAN CORPUSCULAR HGB CONC 33.2 g/dl (32-36); MEAN PLATELET VOLUME 10.5 fL (7.4-10.4); MONO % 8.3 %; PLATELET COUNT 168 K/uL (130-400); RED BLOOD COUNT 4.78 M/uL (4.2-5.4); WHITE BLOOD COUNT 5.28 K/uL (4.8-10.8)
--- NOTE | 2016-09-04 06:39 | DIAGNOSTIC IMAGING REPORT ---
MR ANGIOGRAPHY OF THE [place] NO CONTRAST CLINICAL HISTORY: dizziness LYMPHOMA COMPARISON STUDY: None. A 3-D [id number] MR angiographic sequence of the [place] was performed. Both the source and projection images were reviewed. There is no evidence of major intracranial branch occlusion. There is no evidence of intracranial stenosis. There are no lesions suspicious for aneurysm. There is a hypoplastic right A1 segment. IMPRESSION: Hypoplastic right A1 segment. Otherwise unremarkable MR angiography of the [place] Electronically signed by: Gerard Darling M.D. 09/04/2016 6:38 AM Dictated Date/Time: 09/04/2016 6:36 AM
[2016-09-04 07:01] LABS: BUN/CREATININE RATIO 17.7 (10-20); CREATININE 0.65 mg/dl (0.60-1.20); POTASSIUM 3.5 mmol/L (3.5-5.1)
[2016-09-04 07:05] LABS: CHOLESTEROL/HDL RATIO 4.9
[2016-09-04 07:15] LABS: ESTIMATED AVERAGE GLUCOSE 97 mg/dl; HA1C FLAG Normal (Normal)
[2016-09-04] MEDS: ACETAMINOPHEN 325 MG TAB PO PRN ×2 (07:59→21:21)
--- NOTE | 2016-09-04 08:07 | DIAGNOSTIC IMAGING REPORT ---
MRI OF THE BRAIN WITHOUT AND WITH IV CONTRAST CLINICAL HISTORY: Stroke DIZZINESS, LYMPHOMA COMPARISON STUDY: Head CT dated 09/03/2016 TECHNIQUE: MRI of the brain was performed from the vertex to the skull base utilizing various T1 and T2 weighted sequences. Following the IV administration of 10 mL of Gadavist contrast, additional enhanced images were obtained. FINDINGS: Sagittal T1, axial diffusion, proton density and T2 weighted axial, coronal FLAIR, and pre and post axial T1-weighted images were acquired. These were supplemented with post gadolinium coronal T1 weighted images. No intra or extra-axial mass lesions are visualized. Axial diffusion-weighted images reveal no evidence of acute or subacute infarction. There is no evidence of ventricular dilatation. Proton density T2-weighted and FLAIR images reveal scattered foci of increased T2 signal within the white matter, likely on a small vessel basis. There are no abnormal flow voids. There is no evidence of pathologic enhancement. IMPRESSION: 1. There are a few scattered foci of increased T2 signal within the white matter. While nonspecific, these are likely on a small vessel basis 2. No evidence of intracranial mass. 3. No evidence of acute or subacute infarction Electronically signed by: Gerard Darling M.D. 09/04/2016 8:05 AM Dictated Date/Time: 09/04/2016 8:03 AM
[2016-09-04] MEDS: HEPARIN SOD 5000 UNIT/0.5 ML CARP SQ SCH ×2 (09:00→21:00)
[2016-09-04] MEDS ORDERED: TRAMADOL HCL 50 MG TAB PO PRN (10:00)
[2016-09-04] MEDS ORDERED: DICLOFENAC SOD 1% GEL 100 GM TUBE EXT PRN (10:00)
[2016-09-04] MEDS ORDERED: METHOCARBAMOL 750 MG TAB PO PRN (10:00)
[2016-09-04] MEDS: ONDANSETRON INJ 2 MG/ML 2 ML VIAL IV PRN ×2 (10:27→15:17)
--- NOTE | 2016-09-04 10:40 | Neurology Consultation ---
Neurology Consultation Date of Consultation: Sep 04, 2016. Attending Physician: Maura Burkett DO Primary Care Physician: Korey Allison M.D. Reason for Consultation: Patient is a 61 year old , was asked to see at the request of Dr. Weaver, for neurologic consultation regarding acute onset vertigo. History of Present Illness Source: patient, caregiver, hospital records The patient has a history of hypertension for many years. She is on lisinopril. She has a history of lupus arthritis on plaque on no followed by Dr. Ramos. She has had multiple myringotomy tubes placed in each ear the most recent being 3 years ago. However, she has not had any recent ringing in ears, hearing loss, or tinnitus. She's had no congestion or illnesses. The patient woke at about 0800 hours on September 03. She noticed the acute onset of vertiginous feeling worse with head movement. She had a spinning sensation and when she sat up she felt like she was forced straight backward onto her bed. The worst of it lasted 5 minutes and she slowly tried to get up and sit at the edge of the bed. By 820 she was taking a shower and could manage this fairly well. [facility], where she is quite directed and place the organ at around 0845 hours she had the onset of vertiginous feelings, nausea, and diaphoresis. She did not vomit. She did not feel cold in any one particular direction but had spinning and wooziness. She also had lightedness as if she was going to pass out but she did not actually pass out. She had no symptoms in her arms and legs such as pain, weakness, or numbness, confusion, double vision or other vision problems, or significant headache at the time. She went home and tried to rest, but the dizziness was getting worse as time passed. She arrived at the emergency room on September 03 at 1546 hrs. with a blood pressure of 190/129, pulse 79 and regular, respiratory rate 16 and comfortable, temperature 37.0, and O2 saturation 95%. The patient had some neck pain but no rigidity. Neurologic examination was unremarkable for focal neurologic signs CT scan of the head was unremarkable. MRI of the brain showed no acute stroke and a minimal amount of white matter changes. 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 Overnight she started having a global headache but that's better this morning. She still has vertiginous feelings whenever she moves her head or changes position. Once she stays in a position, she feels a little better. She still gets some nausea but is not vomiting. She has no other symptoms. Meclizine helps a little bit. Her blood pressure is still up today. Past Medical/Surgical History Medical Problems: (1) Dizziness Status: Acute (2) Hypertension Status: Chronic (3) Stroke-like symptoms Status: Acute (4) Upper back pain on left side Status: Acute Follicular lymphoma, followed by Dr. Roldan Lupus arthritis, followed by Dr. Ramos Glaucoma Postcholecystectomy Cataract surgery Lasik Sinus surgery Hysterectomy with salpingo-oophorectomy Family History Mother, is alive at age 90 with breast cancer and hypertension Father, age 83 with strokes, diabetes, and hypertension Social History The patient never smoked cigarettes. She will drink one glass of wine perhaps once every 2-3 weeks. 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 Smoking Status: Never smoker Smokeless Tobacco Use: No Alcohol Use: occasionally Drug Use: none Marital Status: Housing Status: lives with family Occupation Status: employed Allergies Coded Allergies: Lidocaine (Verified Allergy, Intermediate, "NOVOCAINE" FULL BODY RASH, ) Procaine (Verified Allergy, Intermediate, rash over entire body, 09/03/16) Penicillins (Verified Allergy, Mild, RASH, 09/03/16) Clarithromycin (Verified Adverse Reaction, Intermediate, G I UPSET-FELT AWFUL, 09/03/16) Codeine (Verified Adverse Reaction, Intermediate, SEVERE HEADACHE, 09/03/16 ) Meperidine (Verified Adverse Reaction, Intermediate, SEVERE HEADACHE, 09/03) Sulfa Antibiotics (Verified Adverse Reaction, Intermediate, G I UPSET FELT AWFUL, 09/03/16) Current Inpatient Medications Current Inpatient Medications Medications (Trade) Dose Ordered Sig/Leandro Route Start Time Stop Time Status Last Admin Dose Admin Ioversol (Optiray 320) 100 ml UD PRN IV 09/03/16 16:30 09/07/16 16:29 Acetaminophen (Tylenol Tab) 650 mg Q4H PRN PO 09/03/16 22:15 10/03/16 22:14 09/04/16 07:59 650 MG Al Hydrox/Mg Hydrox/Simethicone (Maalox Max Susp) 15 ml Q4H PRN PO 09/03/16 22:15 10/03/16 22:14 Magnesium Hydroxide (Milk Of Magnesia Susp) 30 ml Q12H PRN PO 09/03/16 22:15 10/03/16 22:14 Ondansetron HCl (Zofran Inj) 4 mg Q6H PRN IV 09/03/16 22:15 10/03/16 22:14 09/03/16 22:54 4 MG Miscellaneous Information (Pharmacist Discharge Med Rec Consult) 1 ea UD PRN N/A 09/03/16 22:15 10/03/16 22:14 Gadobutrol (Gadavist) 10 mmol UD PRN IV 09/03/16 23:45 09/07/16 23:44 Meclizine HCl (Antivert Tab) 25 mg Q8H PRN PO 09/04/16 04:30 10/04/16 04:29 Heparin Sodium (Porcine) (Heparin Sq 5000 Unit/0.5ml) 5,000 unit Q12 SQ 09/04/16 09:00 10/04/16 08:59 Hydralazine HCl (HydrALAZINE INJ) 10 mg Q6H PRN IV. 09/04/16 05:15 10/04/16 05:14 Brinzolamide (Azopt) 1 drops BID OPB 09/04/16 21:00 10/04/16 20:59 Diclofenac Sodium (Voltaren 1% Top Gel) 1 appln QID PRN EXT 09/04/16 10:00 10/04/16 09:59 Doxepin HCl (Sinequan Cap) 75 mg HS PO 09/04/16 21:00 10/04/16 20:59 HCTZ/Lisinopril (Prinzide 10-12.5MG Tab) 1 tab QAM PO 09/05/16 09:00 10/05/16 08:59 Hydroxychloroquine Sulfate (Plaquenil Tab) 200 mg QAM PO 09/05/16 09:00 10/05/16 08:59 Meloxicam (Mobic Tab) 15 mg QAM PO 09/05/16 09:00 10/05/16 08:59 Methocarbamol (Robaxin Tab) 750 mg Q6H PRN PO 09/04/16 10:00 10/04/16 09:59 Metoclopramide HCl (Reglan Tab) 10 mg BID PO 09/04/16 21:00 10/04/16 20:59 Timolol Maleate (Timoptic-Xe 0.5% Oph Soln) 1 drops BID OPB 09/04/16 21:00 10/04/16 20:59 Tramadol HCl (Ultram Tab) 50 mg Q8H PRN PO 09/04/16 10:00 10/04/16 09:59 Travoprost (Travatan Z) 1 drops HS OPB 09/04/16 21:00 10/04/16 20:59 Pantoprazole Sodium (Protonix Tab) 40 mg QPM PO 09/04/16 21:00 10/04/16 20:59 Review of Systems Constitutional: No fatigue, No weakness Eyes: No diplopia, No worsening of vision ENT: No hearing loss, No sore throat, No tinnitus Respiratory: No cough, No shortness of breath Cardiovascular: No chest pain, No palpitations Abdomen: No nausea, No pain Musculoskeletal: + joint pain, No muscle pain Genitourinary - Female: No dysuria, No urinary incontinence Neurologic: + balance problems, + vertigo, No memory loss, No numbness/tingling , No weakness Psychiatric: No anxiety, No depression symptoms Endocrine: No fatigue Hematologic / Lymphatic: No abnormal bleeding/bruising Integumentary: No rash Allergic / Immunologic: No hives Physical Exam Vital Signs (Past 24 Hrs): Date Time Temp Pulse Resp B/P Pulse Ox O2 Delivery O2 Flow Rate FiO2 09/04/16 10:02 85 128/79 86 95/42 96 150/88 09/04/16 08:00 Room Air 09/04/16 07:26 36.8 71 18 138/85 99 Room Air 09/04/16 04:33 36.8 80 18 147/87 95 Room Air 09/04/16 04:00 Room Air 09/04/16 01:57 36.4 85 18 138/88 96 Room Air 09/04/16 00:20 74 16 133/76 98 Room Air 09/03/16 22:20 83 12 09/03/16 22:15 140/80 09/03/16 22:05 88 19 09/03/16 22:01 129/68 09/03/16 21:50 82 17 09/03/16 21:45 182/102 09/03/16 21:35 84 23 09/03/16 21:31 159/92 09/03/16 21:20 83 16 09/03/16 21:15 168/113 09/03/16 21:05 79 09/03/16 21:01 144/88 09/03/16 20:50 76 15 09/03/16 20:46 152/91 09/03/16 20:30 161/86 09/03/16 20:25 166/94 09/03/16 20:25 88 09/03/16 20:20 86 13 98 09/03/16 20:15 86 14 99 09/03/16 20:03 177/103 09/03/16 20:00 85 13 173/103 99 09/03/16 19:46 173/100 09/03/16 19:45 87 13 98 09/03/16 19:31 181/107 09/03/16 19:30 80 17 99 09/03/16 19:16 179/95 09/03/16 19:15 83 19 99 09/03/16 19:00 79 12 168/116 98 09/03/16 18:52 76 20 166/125 97 Room Air 09/03/16 18:52 166/125 09/03/16 18:30 71 17 213/130 98 09/03/16 18:15 73 7 97 09/03/16 18:00 72 12 95 09/03/16 17:54 74 17 161/117 97 Room Air 09/03/16 16:21 81 09/03/16 15:46 37.0 79 16 190/129 95 Patient is right-handed. The patient is awake and alert. Speech is normal without aphasia or dysarthria. Mentation and thought processes are intact with orientation and normal fund of knowledge. Mood and affect are normal and appropriate. Appearance and grooming are normal. The discs are sharp with positive venous pulsations. There are no exudates, hemorrhages, or blood vessel changes seen. Pupils are 4mm bilaterally and reactive to light. Extraocular eye muscles are intact without nystagmus. Visual acuity and visual montesinos seem normal grossly to confrontation. There are no deficits to sensation of the face bilaterally. Corneal reflexes are positive bilaterally. Facial strength and symmetry is normal bilaterally. Hearing seems intact grossly to voice and finger rub. Palate moves well without asymmetry. There is normal sternocleidomastoid and trapezius strength bilaterally. Tongue is midline with good strength bilaterally. Neck is with full range of motion without discomfort. There are no cervical bruits. There are no cranial or ocular bruits. Heart is without murmur. Cervical, thoracic, and lumbar spine are nontender to palpation. Gait is is not tested due to her vertigo but stance sitting up in bed is quite stable. With outstretched arms there is no drift. There are no resting, postural, or action tremors. There is no ataxia with [id number] testing. There is good facility in the hands. There are no abnormal involuntary movements noted. Motor strength is 5/5 diffusely in the arms bilaterally including deltoids, biceps, brachioradialis, wrist flexors and extensors, console assembler, and intrinsic hand muscles. Motor strength is 5/5 diffusely in the legs bilaterally including hip flexors, quadriceps, hamstring, gastrocnemius, tibialis anterior, tibialis posterior, and peroneii muscles bilaterally. Toe extensors are normal and there is good bulk in the extensor digitorum brevis muscle bilaterally. The limbs have good tone without rigidity or spasticity, and there is no atrophy noted. Muscle bulk is normal, there is no tenderness, no myotonia noted to percussion, and no fasciculations seen. Sensory examination is intact to pin and touch throughout all four limbs. Reflexes are 2/4 in the biceps, triceps, brachioradialis, quadriceps, and Achilles tendons bilaterally. Toes are downgoing with plantar stimulation bilaterally. Peripheral pulses are present and of normal quality distally in all four limbs. There is no peripheral edema noted. Laboratory Results Past 24 Hours: 09/04/16 06:00 Red Blood Count 4.78, Mean Corpuscular Volume 92.7, Mean Corpuscular Hemoglobin 30.8, Mean Corpuscular Hemoglobin Concent 33.2, Mean Platelet Volume 10.5, Neutrophils (%) (Auto) 54.0, Lymphocytes (%) (Auto) 33.5, Monocytes (%) (Auto) 8.3, Eosinophils (%) (Auto) 3.6, Basophils (%) (Auto) 0.4, Neutrophils # (Auto) 2.85, Lymphocytes # (Auto) 1.77, Monocytes # (Auto) 0.44, Eosinophils # (Auto) 0.19, Basophils # (Auto) 0.02 09/04/16 06:00 Test 09/03/16 16:00 09/03/16 17:05 09/04/16 06:00 Estimated Average Glucose 97 mg/dl Hemoglobin A1c 5.0 % (4.5-5.6) Total Bilirubin 0.4 mg/dl (0.2-1) Aspartate Amino Transf (AST/SGOT) 20 U/L (15-37) Alanine Aminotransferase (ALT/SGPT) 37 U/L (12-78) Alkaline Phosphatase 114 U/L (45-117) Total Protein 8.2 gm/dl (6.4-8.2) Albumin 4.2 gm/dl (3.4-5.0) Globulin 4.0 gm/dl (2.5-4.0) Albumin/Globulin Ratio 1.1 (0.9-2) Thyroid Stimulating Hormone (TSH) 0.605 uIu/ml (0.300-4.500) Urine Color YELLOW Urine Appearance CLEAR (CLEAR) Urine pH 8.0 (4.5-7.5) Urine Specific [place] 1.007 (1.000-1.030) Urine Protein NEG (NEG) Urine Glucose (UA) NEG (NEG) Urine Ketones NEG (NEG) Urine Occult Blood NEG (NEG) Urine Nitrite NEG (NEG) Urine Bilirubin NEG (NEG) Urine Urobilinogen NEG (NEG) Urine Leukocyte Esterase SMALL (NEG) Urine WBC (Auto) 1-5 /hpf (0-5) Urine RBC (Auto) 0-4 /hpf (0-4) Urine Hyaline Casts (Auto) 0 /lpf (0-5) Urine Epithelial Cells (Auto) 10-20 /lpf (0-5) Urine Bacteria (Auto) NEG (NEG) White Blood Count 5.28 K/uL (4.8-10.8) Red Blood Count 4.78 M/uL (4.2-5.4) Hemoglobin 14.7 g/dL (12.0-16.0) Hematocrit 44.3 % (37-47) Mean Corpuscular Volume 92.7 fL (80-100) Mean Corpuscular Hemoglobin 30.8 pg (25-34) Mean Corpuscular Hemoglobin Concent 33.2 g/dl (32-36) Platelet Count 168 K/uL (130-400) Mean Platelet Volume 10.5 fL (7.4-10.4) Neutrophils (%) (Auto) 54.0 % Lymphocytes (%) (Auto) 33.5 % Monocytes (%) (Auto) 8.3 % Eosinophils (%) (Auto) 3.6 % Basophils (%) (Auto) 0.4 % Neutrophils # (Auto) 2.85 K/uL (1.4-6.5) Lymphocytes # (Auto) 1.77 K/uL (1.2-3.4) Monocytes # (Auto) 0.44 K/uL (0.11-0.59) Eosinophils # (Auto) 0.19 K/uL (0-0.5) Basophils # (Auto) 0.02 K/uL (0-0.2) RDW Standard Deviation 45.6 fL (36.4-46.3) RDW Coefficient of Variation 13.3 % (11.5-14.5) Immature Granulocyte % (Auto) 0.2 % Immature Granulocyte # (Auto) 0.01 K/uL (0.00-0.02) Prothrombin Time 11.0 SECONDS (9.0-12.0) Prothromb Time International Ratio 1.0 (0.9-1.1) Anion Gap 9.0 mmol/L (3-11) Est Creatinine Clear Calc Drug Dose 105.3 ml/min Estimated GFR () 109.5 Estimated GFR (Non- 94.5 BUN/Creatinine Ratio 17.7 (10-20) Calcium Level 9.0 mg/dl (8.5-10.1) Triglycerides Level 157 mg/dl (0-150) Cholesterol Level 201 mg/dl (0-200) HDL Cholesterol 41 mg/dl LDL Cholesterol, Calculated 129 mg/dl VLDL Cholesterol, Calculated 31 mg/dl Cholesterol/HDL Ratio 4.9 Imaging MRI OF THE BRAIN WITHOUT AND WITH IV CONTRAST CLINICAL HISTORY: Stroke DIZZINESS, LYMPHOMA COMPARISON STUDY: Head CT dated 09/03/2016 TECHNIQUE: MRI of the brain was performed from the vertex to the skull base utilizing various T1 and T2 weighted sequences. Following the IV administration of 10 mL of Gadavist contrast, additional enhanced images were obtained. FINDINGS: Sagittal T1, axial diffusion, proton density and T2 weighted axial, coronal FLAIR, and pre and post axial T1-weighted images were acquired. These were supplemented with post gadolinium coronal T1 weighted images. No intra or extra-axial mass lesions are visualized. Axial diffusion-weighted images reveal no evidence of acute or subacute infarction. There is no evidence of ventricular dilatation. Proton density T2-weighted and FLAIR images reveal scattered foci of increased T2 signal within the white matter, likely on a small vessel basis. There are no abnormal flow voids. There is no evidence of pathologic enhancement. IMPRESSION: 1. There are a few scattered foci of increased T2 signal within the white matter. While nonspecific, these are likely on a small vessel basis 2. No evidence of intracranial mass. 3. No evidence of acute or subacute infarction Electronically signed by: Gerard Darling M.D. 09/04/2016 8:05 AM Impression 1. Acute onset vertigo, positional Neurologic examination is largely unremarkable and she has no focal neurologic signs, meningeal signs, or encephalopathy. She has no nystagmus. The etiology of the vertigo is likely in her ear however I believe the hypertension is making this worse/driving it She does have a history of migraines but this does not seem to be atypical migraine attack for her. There is no evidence for acute stroke. Head and neck circulation is unremarkable as well. 2. Hypertension, not adequately controlled. 3. Nonspecific neck pain, likely osteoarthritic in origin. There are no signs of radiculopathy or myelopathy. Plan 1. Continue meclizine 25 mg 3 times a day for the next several days. 2. Consider adding Valium starting at 2 mg by mouth twice a day or 3 times a day as this can really help positional vertigo. Would have to watch sleepiness. 3. Control blood pressure as you're doing 4. Increase activity slowly. 5. I see no need for additional neurologic testing or treatment at this time
[2016-09-04] MEDS ORDERED: HYDROXYCHLOROQUINE SULFATE 200 MG TAB PO SCH (11:00)
[2016-09-04] MEDS ORDERED: LISINOPRIL/HCTZ 10/12.5MG TAB PO SCH (11:00)
[2016-09-04] MEDS ORDERED: METOCLOPRAMIDE HCL 10 MG TAB PO SCH (11:00)
[2016-09-04] MEDS ORDERED: MELOXICAM 7.5 MG TAB PO SCH (11:00)
[2016-09-04] MEDS: BRINZOLAMIDE (AZOPT) OPS 10 ML BTL OPB SCH ×2 (11:16→21:20)
[2016-09-04] MEDS: TIMOLOL GFS 0.5% OPH SOLN 74 DROPS/5 ML BTL OPB SCH ×2 (11:16→21:21)
--- NOTE | 2016-09-04 11:29 | Medical Student: [facility] ---
Consultation Date of Consultation: Sep 04, 2016. History of Present Illness Pt is a 61 year old female with a history of migraines, glaucoma, HTN, cutaneous lupus, fibromyalgia, gastroparesis, Sjogren's, and follicular lymphoma who is admitted for dizziness and hypertension. The pt states that she felt normal when she went to bed 2 nights ago, then awoke yesterday morning at ~ 0800 and became dizzy when she got out of bed. She describes it as "like I'm drunk and like I was pulled back into bed." She lied back down for 5 mins and then sat on the side of the bed for 15 mins and it improved. 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 She then felt dizzy again at ~0845 as well as a few other times throughout the day, primarily when rising out of a chair or sitting down and extending her neck. The dizziness improved from a 10/10 to 8/10 after receiving meclizine 25 mg as well as Ativan 1.5 mg. She has been able to walk, but slowly. The dizziness is associated with nausea, sweats, and photophobia, but no vomiting. She awoke with a stiff neck yesterday, which she relates to "sleeping on it funny" or her arthritis. This neck pain is new for her. No fevers, chills, or recent illnesses. She denies weakness, numbness, slurred speech, blurred or double vision, tinnitus, ear pain, or hearing changes. While in the ED, she was markedly hypertensive with BP up to 213/130, for which she received labetolol 10 mg and hydralazine 10 mg. Then overnight, she developed a global headache, which she currently rates at "11/10." It was gradual onset and feels "like migraines I've had before." She only gets migraines about once per year, which normally improve with ibuprofen. She has a Rx for butalbital-acetaminophen- caffeine prn, but has never used it. Past Medical/Surgical History Medical History: migraines, glaucoma, HTN, cutaneous lupus, fibromyalgia, gastroparesis, Sjogren' s, and follicular lymphoma (which is stable and being followed by Dr. Roldan - no radiation or chemotherapy yet). Surgical History: Hysterectomy, cholecystectomy, sinus surgery, macular hole, myringotomy tubes ( last replaced years ago) Family History Father had two strokes at age 65 and 80. at age 83. Mother is still alive at 90. Hx of breast CA, heart disease, and thyroid disease. Brother with HTN. 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 Review of Systems Constitutional: + sweats, No chills, No fever Eyes: No diplopia ENT: No hearing loss, No tinnitus Abdomen: + nausea, No vomiting Musculoskeletal: + see HPI Female : No incontinence Neurologic: + see HPI All Other Systems: Reviewed and Negative Allergies Coded Allergies: Lidocaine (Verified Allergy, Intermediate, "NOVOCAINE" FULL BODY RASH, ) Procaine (Verified Allergy, Intermediate, rash over entire body, 09/03/16) Penicillins (Verified Allergy, Mild, RASH, 09/03/16) Clarithromycin (Verified Adverse Reaction, Intermediate, G I UPSET-FELT AWFUL, 09/03/16) Codeine (Verified Adverse Reaction, Intermediate, SEVERE HEADACHE, 09/03/16 ) Meperidine (Verified Adverse Reaction, Intermediate, SEVERE HEADACHE, 09/03) Sulfa Antibiotics (Verified Adverse Reaction, Intermediate, G I UPSET FELT AWFUL, 09/03/16) Medications Home Medications Scheduled Brinzolamide Oph (Azopt Oph), 1 DROP OPB BID Calcium Carbonate-Vitamin D W/ (Caltrate 600 Plus), 1 TAB PO BID Doxepin (Sinequan), 75 MG PO HS Ergocalciferol (Vitamin D2), 400 UNITS PO QAM Hctz/Lisinopril (Lisinopril/Hctz 10/12.5 Mg), 1 TAB PO QAM Hydroxychloroquine Sulfate (Plaquenil), 200 MG PO QAM Meloxicam (Mobic), 15 MG PO QAM Metoclopramide (Reglan), 10 MG PO BID Multivitamin (Multivitamin), 1 TAB PO QAM Omeprazole (Prilosec), 20 MG PO QPM Timolol Maleate (Timolol Gfs 0.5% (Generic For Timoptic-Xe)), 1 DROP OPB BID Travoprost (Travatan Z), 1 DROP OPB HS Scheduled PRN Ntsaqhstwy-Xegfljtwwxsgp-Xuxli (Butalbital/APAP/Caffeine 50-300-40 mg), 1 TAB PO PRN PRN for Migraine Diclofenac Sodium (Topical) (Voltaren 1% Top Gel), 1 APPLN TOP QID PRN for Pain Fluticasone Propionate (Nasal) (Flonase Allergy Relief), 2 SPRAYS WILLIAM DAILY PRN for ALLERGIC REACTION Methocarbamol (Robaxin), 750 MG PO Q6H PRN for PRN Tramadol (Ultram), 50 MG PO Q8H PRN for Pain Current Inpatient Medications Medications (Trade) Dose Ordered Sig/Leandro Route Start Time Stop Time Status Last Admin Dose Admin Ioversol (Optiray 320) 100 ml UD PRN IV 09/03/16 16:30 09/07/16 16:29 Acetaminophen (Tylenol Tab) 650 mg Q4H PRN PO 09/03/16 22:15 10/03/16 22:14 Al Hydrox/Mg Hydrox/Simethicone (Maalox Max Susp) 15 ml Q4H PRN PO 09/03/16 22:15 10/03/16 22:14 Magnesium Hydroxide (Milk Of Magnesia Susp) 30 ml Q12H PRN PO 09/03/16 22:15 10/03/16 22:14 Ondansetron HCl (Zofran Inj) 4 mg Q6H PRN IV 09/03/16 22:15 10/03/16 22:14 09/03/16 22:54 4 MG Miscellaneous Information (Pharmacist Discharge Med Rec Consult) 1 ea UD PRN N/A 09/03/16 22:15 10/03/16 22:14 Gadobutrol (Gadavist) 10 mmol UD PRN IV 09/03/16 23:45 09/07/16 23:44 Meclizine HCl (Antivert Tab) 25 mg Q8H PRN PO 09/04/16 04:30 10/04/16 04:29 Heparin Sodium (Porcine) (Heparin Sq 5000 Unit/0.5ml) 5,000 unit Q12 SQ 09/04/16 09:00 10/04/16 08:59 Hydralazine HCl (HydrALAZINE INJ) 10 mg Q6H PRN IV. 09/04/16 05:15 10/04/16 05:14 Physical Exam Date Time Temp Pulse Resp B/P Pulse Ox O2 Delivery O2 Flow Rate FiO2 09/04/16 07:26 36.8 71 18 138/85 99 Room Air 09/04/16 04:33 36.8 80 18 147/87 95 Room Air 09/04/16 04:00 Room Air 09/04/16 01:57 36.4 85 18 138/88 96 Room Air 09/04/16 00:20 74 16 133/76 98 Room Air 09/03/16 22:20 83 12 09/03/16 22:15 140/80 09/03/16 22:05 88 19 09/03/16 22:01 129/68 09/03/16 21:50 82 17 09/03/16 21:45 182/102 09/03/16 21:35 84 23 09/03/16 21:31 159/92 09/03/16 21:20 83 16 09/03/16 21:15 168/113 09/03/16 21:05 79 09/03/16 21:01 144/88 09/03/16 20:50 76 15 09/03/16 20:46 152/91 09/03/16 20:30 161/86 09/03/16 20:25 166/94 09/03/16 20:25 88 09/03/16 20:20 86 13 98 09/03/16 20:15 86 14 99 09/03/16 20:03 177/103 09/03/16 20:00 85 13 173/103 99 09/03/16 19:46 173/100 09/03/16 19:45 87 13 98 09/03/16 19:31 181/107 09/03/16 19:30 80 17 99 09/03/16 19:16 179/95 09/03/16 19:15 83 19 99 09/03/16 19:00 79 12 168/116 98 09/03/16 18:52 76 20 166/125 97 Room Air 09/03/16 18:52 166/125 09/03/16 18:30 71 17 213/130 98 09/03/16 18:15 73 7 97 09/03/16 18:00 72 12 95 09/03/16 17:54 74 17 161/117 97 Room Air 09/03/16 16:21 81 09/03/16 15:46 37.0 79 16 190/129 95 General Appearance: WD/WN, + pertinent finding (Pt lying in bed in a darkened room, appears uncomfortable. ) Eyes: bilateral eyes normal inspection ENT: hearing grossly normal, pharynx normal Neck: + pertinent finding (No nuchal rigidity. Kernig's and Brudzinski's are negative. Neck is nontender to palpation. ) Respiratory: no respiratory distress, no accessory muscle use Neurologic exam: Spontaneous speech is of normal rate and tone and without dysarthria. Recent and remote memory are intact, and fund of knowledge is appropriate. Strength of the intrinsic hand muscles, wrist extensors, wrist flexors, biceps, triceps, deltoids and trapezius muscles was 5 / 5 bilaterally, symmetrical. Strength of the hip flexors, quadriceps, hamstrings, ankle flexors, and ankle extensors 5 / 5 bilaterally, symmetrical. Triceps, biceps, and brachioradialis reflexes 2+ and symmetric. Patellar and Achilles reflexes 2+ and symmetric. Toe was down-going bilaterally on Babinski Reflex Testing. There was no dysmetria on unteul-xc-abyb testing. No tremor. There was no pronator drift. Romberg's and gait analysis were deferred due to pt's dizziness with sitting up. Cranial nerves: I: Not tested II: PERRL. Visual montesinos intact. III, IV, : EOMI. No nystagmus. V: Symmetric sensation to light touch over the distribution of CN V. VII: symmetrical wrinkling of the forehead, eye closure, smile, and cheek expansion. VIII: hearing symmetric. IX, X: uvula midline XI: trapezius strength is 5/5 and symmetric XII: tongue protrudes midline Laboratory Results Last 24 Hours Test 09/03/16 16:00 09/03/16 17:05 09/04/16 06:00 White Blood Count 6.15 K/uL 5.28 K/uL Red Blood Count 4.94 M/uL 4.78 M/uL Hemoglobin 15.5 g/dL 14.7 g/dL Hematocrit 44.9 % 44.3 % Mean Corpuscular Volume 90.9 fL 92.7 fL Mean Corpuscular Hemoglobin 31.4 pg 30.8 pg Mean Corpuscular Hemoglobin Concent 34.5 g/dl 33.2 g/dl Platelet Count 206 K/uL 168 K/uL Mean Platelet Volume 10.8 fL 10.5 fL Neutrophils (%) (Auto) 59.8 % 54.0 % Lymphocytes (%) (Auto) 27.5 % 33.5 % Monocytes (%) (Auto) 7.6 % 8.3 % Eosinophils (%) (Auto) 4.1 % 3.6 % Basophils (%) (Auto) 0.8 % 0.4 % Neutrophils # (Auto) 3.68 K/uL 2.85 K/uL Lymphocytes # (Auto) 1.69 K/uL 1.77 K/uL Monocytes # (Auto) 0.47 K/uL 0.44 K/uL Eosinophils # (Auto) 0.25 K/uL 0.19 K/uL Basophils # (Auto) 0.05 K/uL 0.02 K/uL RDW Standard Deviation 42.8 fL 45.6 fL RDW Coefficient of Variation 13.0 % 13.3 % Immature Granulocyte % (Auto) 0.2 % 0.2 % Immature Granulocyte # (Auto) 0.01 K/uL 0.01 K/uL Sodium Level 142 mmol/L 145 mmol/L Potassium Level 3.6 mmol/L 3.5 mmol/L Chloride Level 106 mmol/L 111 mmol/L Carbon Dioxide Level 28 mmol/L 25 mmol/L Anion Gap 8.0 mmol/L 9.0 mmol/L Blood Urea Nitrogen 12 mg/dl 12 mg/dl Creatinine 0.75 mg/dl 0.65 mg/dl Est Creatinine Clear Calc Drug Dose 91.9 ml/min 105.3 ml/min Estimated GFR () 98.3 109.5 Estimated GFR (Non- 84.8 94.5 BUN/Creatinine Ratio 15.8 17.7 Random Glucose 98 mg/dl 92 mg/dl Estimated Average Glucose 97 mg/dl Hemoglobin A1c 5.0 % Calcium Level 9.4 mg/dl 9.0 mg/dl Total Bilirubin 0.4 mg/dl Aspartate Amino Transf (AST/SGOT) 20 U/L Alanine Aminotransferase (ALT/SGPT) 37 U/L Alkaline Phosphatase 114 U/L Total Protein 8.2 gm/dl Albumin 4.2 gm/dl Globulin 4.0 gm/dl Albumin/Globulin Ratio 1.1 Thyroid Stimulating Hormone (TSH) 0.605 uIu/ml Urine Color YELLOW Urine Appearance CLEAR Urine pH 8.0 Urine Specific [place] 1.007 Urine Protein NEG Urine Glucose (UA) NEG Urine Ketones NEG Urine Occult Blood NEG Urine Nitrite NEG Urine Bilirubin NEG Urine Urobilinogen NEG Urine Leukocyte Esterase SMALL Urine WBC (Auto) 1-5 /hpf Urine RBC (Auto) 0-4 /hpf Urine Hyaline Casts (Auto) 0 /lpf Urine Epithelial Cells (Auto) 10-20 /lpf Urine Bacteria (Auto) NEG Prothrombin Time 11.0 SECONDS Prothromb Time International Ratio 1.0 Triglycerides Level 157 mg/dl Cholesterol Level 201 mg/dl HDL Cholesterol 41 mg/dl LDL Cholesterol, Calculated 129 mg/dl VLDL Cholesterol, Calculated 31 mg/dl Cholesterol/HDL Ratio 4.9 CT SCAN OF THE BRAIN WITHOUT IV CONTRAST CLINICAL HISTORY: Generalized weakness. Change in mental status. COMPARISON STUDY: No priors. TECHNIQUE: Unenhanced axial CT scan of the brain is performed from the vertex to the skull base. Automated dose control exposure was utilized. CT DOSE: 537.48 mGy.cm FINDINGS: Brain parenchyma: The brain parenchyma is normal in appearance. There is no hemorrhage, mass effect, or evidence of acute territorial ischemia by CT criteria. Mcfarlane-white matter is preserved. No extra-axial fluid collection is seen. Ventricles, sulci, cisterns: Normal in configuration. Intracranial vasculature: There is minimal atherosclerotic calcification of the cavernous carotid and vertebral arteries. Calvarium: Unremarkable. Sinuses and mastoids: The visualized paranasal sinuses are clear. There are small mastoid effusions. Orbits: The bony orbits are grossly intact. There are bilateral ocular lens implants. IMPRESSION: There is no hemorrhage, mass effect, or evidence of acute territorial ischemia by CT criteria. Electronically signed by: Alfredito Esposito M.D. 09/03/2016 5:[address] ANGIOGRAM OF THE NECK CLINICAL HISTORY: Dizziness. Generalized weakness. Neck pain. COMPARISON STUDY: No priors. TECHNIQUE: Following the IV administration of 92 of Optiray 320, CT angiogram of the neck was performed from the aortic arch to the skull base. Images are reviewed in the axial, sagittal, and coronal planes. 3-D MIPS images are created and assessed. IV contrast was administered without complication. All measurements were calculated based on NASCET criteria. CT DOSE: 445.33 mGy.cm FINDINGS: Thoracic aorta: Visualized portions of the thoracic aorta are normal in caliber. The aortic arch demonstrates standard 3-vessel anatomy. Subclavian arteries: Widely patent bilaterally. Right carotid arterial system: The right common carotid artery is widely patent, as are the right internal and external carotid arteries. The petrous right internal carotid artery appears uncovered at the level of the middle ear. Left carotid arterial system: The left common carotid artery is widely patent, as are the left anterolateral carotid arteries. The petrous left internal carotid artery appears uncovered at the level of the middle ear. Vertebral arteries: The vertebral arteries are widely patent bilaterally and codominant. Intracranial vasculature: The partially imaged intracranial arteries at the skull base are normal in appearance. Brain parenchyma: The visualized brain parenchyma the skull base is within normal limits. Lung apices: Partially visualized upper lobe lung parenchyma appears clear. Soft tissues: The visualized pharyngeal soft tissues are normal in appearance noting angiographic phase technique. The oropharyngeal airway appears widely patent. The salivary and thyroid glands are normal in appearance. Shotty cervical lymph nodes are incidentally noted. Skeletal structures: The skeletal structures are osteopenic. The visualized calvarium at the skull base appears intact. The imaged cervical spine is within normal limits noting mild spondylotic change. A bone island is incidentally noted in the left lamina of C6. Sinuses and mastoids: The visualized paranasal sinuses are clear. There are small mastoid effusions IMPRESSION: Unremarkable CT angiogram of the neck. Electronically signed by: Alfredito Esposito M.D. 09/03/2016 6:16 PM MR ANGIOGRAPHY OF THE [place] NO CONTRAST CLINICAL HISTORY: dizziness LYMPHOMA COMPARISON STUDY: None. A 3-D [id number] MR angiographic sequence of the [place] was performed. Both the source and projection images were reviewed. There is no evidence of major intracranial branch occlusion. There is no evidence of intracranial stenosis. There are no lesions suspicious for aneurysm. There is a hypoplastic right A1 segment. IMPRESSION: Hypoplastic right A1 segment. Otherwise unremarkable MR angiography of the [place] Electronically signed by: Gerard Darling M.D. 09/04/2016 6:38 AM Assessment & Plan ASSESSMENT: Pt is a 61 year old female with a history of migraines, HTN, glaucoma, fibromyalgia, follicular lymphoma, gastroparesis, Sjogren's, and cutaneous lupus who is admitted for dizziness. She was markedly hypertensive up to 213/130 , which has improved with labetolol and hydralazine, but she still remains hypertensive with most recent BP of 155/101. The dizziness has only slightly improved with meclizine 25 mg and Ativan 1.5 mg. Neurological exam is completely intact. Her dizziness is most consistent with Benign paroxysmal positional vertigo. The dizziness is associated with head movement and she describes it as being pushed or being drunk, and the associated nausea izabel also be more consistent with BPPV. Cerebellar stroke or hemorrhage were also considered, but have been ruled out with Brain MRI showing no acute/subacute infarctions. There were only a few scattered white matter changes likely related to small vessel disease due to her HTN. CTA of the neck was unremarkable and MRA of the [place] was also unremarkable. Her uncontrolled HTN could certainly be contributing to her dizziness as well as the headache that she developed last night. The headache is most consistent with migraine, which she has had in the past and states that this feels similar. The dizziness could also be exacerbated by the migraine, although this is less likely as she started having the dizziness prior to the onset of the headache last night. Although she also c/o neck pain, there is no fever and no meningeal signs on exam to suggest meningitis. The headache started gradually last night (after she underwent her brain imaging studies), but there continue to be no focal deficits on exam. Furthermore, there were no aneurysms on head MRA, making subarachnoid or intracerebral hemorrhage unlikely as the cause of her headache. PLAN: 1. BPPV - As there was only slight improvement with meclizine 25 mg, will treat with Valium 2 mg bid-tid until the vertigo improves. This may cause drowsiness, but the pt is aware and comfortable with that. -No further imaging or work-up needed at this time. 2. HTN - Continue labetolol 10 mg and hydralazine 10 mg prn. - Continue the pt's home HCTZ/lisinopril. 3. SCHMITT - Treat with Tylenol and/or ibuprofen as needed.
[2016-09-04] MEDS ORDERED: SODIUM CHLOR 0.45% + 20MEQ KCL 1,000 ML IV SCH (11:30)
[2016-09-04] MEDS ORDERED: KETOROLAC TROMETHAMINE 30 MG/ML VIAL IV PRN (11:30)
[2016-09-04] MEDS ORDERED: NURSING VERBAL MED ORDER ONE ×2 (11:45→15:15)
[2016-09-04] MEDS: MECLIZINE HCL 25 MG TAB PO SCH ×2 (12:36→21:22)
[2016-09-04] MEDS: DIAZEPAM 2MG TAB PO SCH ×2 (12:36→21:21)
--- NOTE | 2016-09-04 12:41 | Hospitalist Progress Note ---
Hospitalist Progress Note Date of Service Sep 04, 2016. (Eusebia Lara PA-C) Subjective Pt evaluation today including: conversation w/ patient, conversation w/ family , physical exam, chart review, lab review, review of studies, conversation w/ group segment consultant, review of inpatient medication list Patient continues to be dizzy today. No significant improvement. It is worse with any movement of her head. Still nauseated. No vomiting. Antinausea medications helping slightly. Also complaining of a headache today. No changes in vision. Additional Comments: 6 system review negative. Please see pertinent positives in the history of present illness section. (Eusebia Lara PA-C) Objective Vital Signs Date Time Temp Pulse Resp B/P Pulse Ox O2 Delivery O2 Flow Rate FiO2 09/04/16 12:00 Room Air 09/04/16 11:26 36.7 74 18 144/90 95 Room Air 09/04/16 10:02 85 128/79 86 95/42 96 150/88 09/04/16 08:00 Room Air 09/04/16 07:26 36.8 71 18 138/85 99 Room Air 09/04/16 04:33 36.8 80 18 147/87 95 Room Air 09/04/16 04:00 Room Air 09/04/16 01:57 36.4 85 18 138/88 96 Room Air 09/04/16 00:20 74 16 133/76 98 Room Air 09/03/16 22:20 83 12 09/03/16 22:15 140/80 09/03/16 22:05 88 19 09/03/16 22:01 129/68 09/03/16 21:50 82 17 09/03/16 21:45 182/102 09/03/16 21:35 84 23 09/03/16 21:31 159/92 09/03/16 21:20 83 16 09/03/16 21:15 168/113 09/03/16 21:05 79 09/03/16 21:01 144/88 09/03/16 20:50 76 15 09/03/16 20:46 152/91 09/03/16 20:30 161/86 09/03/16 20:25 166/94 09/03/16 20:25 88 09/03/16 20:20 86 13 98 09/03/16 20:15 86 14 99 09/03/16 20:03 177/103 09/03/16 20:00 85 13 173/103 99 09/03/16 19:46 173/100 09/03/16 19:45 87 13 98 09/03/16 19:31 181/107 09/03/16 19:30 80 17 99 09/03/16 19:16 179/95 09/03/16 19:15 83 19 99 09/03/16 19:00 79 12 168/116 98 09/03/16 18:52 76 20 166/125 97 Room Air 09/03/16 18:52 166/125 09/03/16 18:30 71 17 213/130 98 09/03/16 18:15 73 7 97 09/03/16 18:00 72 12 95 09/03/16 17:54 74 17 161/117 97 Room Air 09/03/16 16:21 81 09/03/16 15:46 37.0 79 16 190/129 95 (Eusebia Lara PA-C) Physical Exam General Appearance: + moderate distress (in moderate discomfort) Neck: no JVD Respiratory/Chest: lungs clear Cardiovascular: regular rate, rhythm Abdomen: normal bowel sounds, non tender, soft Extremities: non-tender, no pedal edema Neurologic/Psychiatric: oriented x 3 Skin: warm/dry (Eusebia Lara, PA-C) Laboratory Results 09/04/16 06:00 Red Blood Count 4.78, Mean Corpuscular Volume 92.7, Mean Corpuscular Hemoglobin 30.8, Mean Corpuscular Hemoglobin Concent 33.2, Mean Platelet Volume 10.5, Neutrophils (%) (Auto) 54.0, Lymphocytes (%) (Auto) 33.5, Monocytes (%) (Auto) 8.3, Eosinophils (%) (Auto) 3.6, Basophils (%) (Auto) 0.4, Neutrophils # (Auto) 2.85, Lymphocytes # (Auto) 1.77, Monocytes # (Auto) 0.44, Eosinophils # (Auto) 0.19, Basophils # (Auto) 0.02 09/04/16 06:00 Test 09/03/16 16:00 09/03/16 17:05 09/04/16 06:00 Estimated Average Glucose 97 mg/dl Hemoglobin A1c 5.0 % (4.5-5.6) Total Bilirubin 0.4 mg/dl (0.2-1) Aspartate Amino Transf (AST/SGOT) 20 U/L (15-37) Alanine Aminotransferase (ALT/SGPT) 37 U/L (12-78) Alkaline Phosphatase 114 U/L (45-117) Total Protein 8.2 gm/dl (6.4-8.2) Albumin 4.2 gm/dl (3.4-5.0) Globulin 4.0 gm/dl (2.5-4.0) Albumin/Globulin Ratio 1.1 (0.9-2) Thyroid Stimulating Hormone (TSH) 0.605 uIu/ml (0.300-4.500) Urine Color YELLOW Urine Appearance CLEAR (CLEAR) Urine pH 8.0 (4.5-7.5) Urine Specific Burket 1.007 (1.000-1.030) Urine Protein NEG (NEG) Urine Glucose (UA) NEG (NEG) Urine Ketones NEG (NEG) Urine Occult Blood NEG (NEG) Urine Nitrite NEG (NEG) Urine Bilirubin NEG (NEG) Urine Urobilinogen NEG (NEG) Urine Leukocyte Esterase SMALL (NEG) Urine WBC (Auto) 1-5 /hpf (0-5) Urine RBC (Auto) 0-4 /hpf (0-4) Urine Hyaline Casts (Auto) 0 /lpf (0-5) Urine Epithelial Cells (Auto) 10-20 /lpf (0-5) Urine Bacteria (Auto) NEG (NEG) White Blood Count 5.28 K/uL (4.8-10.8) Red Blood Count 4.78 M/uL (4.2-5.4) Hemoglobin 14.7 g/dL (12.0-16.0) Hematocrit 44.3 % (37-47) Mean Corpuscular Volume 92.7 fL (80-100) Mean Corpuscular Hemoglobin 30.8 pg (25-34) Mean Corpuscular Hemoglobin Concent 33.2 g/dl (32-36) Platelet Count 168 K/uL (130-400) Mean Platelet Volume 10.5 fL (7.4-10.4) Neutrophils (%) (Auto) 54.0 % Lymphocytes (%) (Auto) 33.5 % Monocytes (%) (Auto) 8.3 % Eosinophils (%) (Auto) 3.6 % Basophils (%) (Auto) 0.4 % Neutrophils # (Auto) 2.85 K/uL (1.4-6.5) Lymphocytes # (Auto) 1.77 K/uL (1.2-3.4) Monocytes # (Auto) 0.44 K/uL (0.11-0.59) Eosinophils # (Auto) 0.19 K/uL (0-0.5) Basophils # (Auto) 0.02 K/uL (0-0.2) RDW Standard Deviation 45.6 fL (36.4-46.3) RDW Coefficient of Variation 13.3 % (11.5-14.5) Immature Granulocyte % (Auto) 0.2 % Immature Granulocyte # (Auto) 0.01 K/uL (0.00-0.02) Prothrombin Time 11.0 SECONDS (9.0-12.0) Prothromb Time International Ratio 1.0 (0.9-1.1) Anion Gap 9.0 mmol/L (3-11) Est Creatinine Clear Calc Drug Dose 105.3 ml/min Estimated GFR () 109.5 Estimated GFR (Non- 94.5 BUN/Creatinine Ratio 17.7 (10-20) Calcium Level 9.0 mg/dl (8.5-10.1) Triglycerides Level 157 mg/dl (0-150) Cholesterol Level 201 mg/dl (0-200) HDL Cholesterol 41 mg/dl LDL Cholesterol, Calculated 129 mg/dl VLDL Cholesterol, Calculated 31 mg/dl Cholesterol/HDL Ratio 4.9 Last 24 Hours Test 09/03/16 16:00 09/03/16 17:05 09/04/16 06:00 White Blood Count 6.15 K/uL 5.28 K/uL Red Blood Count 4.94 M/uL 4.78 M/uL Hemoglobin 15.5 g/dL 14.7 g/dL Hematocrit 44.9 % 44.3 % Mean Corpuscular Volume 90.9 fL 92.7 fL Mean Corpuscular Hemoglobin 31.4 pg 30.8 pg Mean Corpuscular Hemoglobin Concent 34.5 g/dl 33.2 g/dl Platelet Count 206 K/uL 168 K/uL Mean Platelet Volume 10.8 fL 10.5 fL Neutrophils (%) (Auto) 59.8 % 54.0 % Lymphocytes (%) (Auto) 27.5 % 33.5 % Monocytes (%) (Auto) 7.6 % 8.3 % Eosinophils (%) (Auto) 4.1 % 3.6 % Basophils (%) (Auto) 0.8 % 0.4 % Neutrophils # (Auto) 3.68 K/uL 2.85 K/uL Lymphocytes # (Auto) 1.69 K/uL 1.77 K/uL Monocytes # (Auto) 0.47 K/uL 0.44 K/uL Eosinophils # (Auto) 0.25 K/uL 0.19 K/uL Basophils # (Auto) 0.05 K/uL 0.02 K/uL RDW Standard Deviation 42.8 fL 45.6 fL RDW Coefficient of Variation 13.0 % 13.3 % Immature Granulocyte % (Auto) 0.2 % 0.2 % Immature Granulocyte # (Auto) 0.01 K/uL 0.01 K/uL Sodium Level 142 mmol/L 145 mmol/L Potassium Level 3.6 mmol/L 3.5 mmol/L Chloride Level 106 mmol/L 111 mmol/L Carbon Dioxide Level 28 mmol/L 25 mmol/L Anion Gap 8.0 mmol/L 9.0 mmol/L Blood Urea Nitrogen 12 mg/dl 12 mg/dl Creatinine 0.75 mg/dl 0.65 mg/dl Est Creatinine Clear Calc Drug Dose 91.9 ml/min 105.3 ml/min Estimated GFR () 98.3 109.5 Estimated GFR (Non- 84.8 94.5 BUN/Creatinine Ratio 15.8 17.7 Random Glucose 98 mg/dl 92 mg/dl Estimated Average Glucose 97 mg/dl Hemoglobin A1c 5.0 % Calcium Level 9.4 mg/dl 9.0 mg/dl Total Bilirubin 0.4 mg/dl Aspartate Amino Transf (AST/SGOT) 20 U/L Alanine Aminotransferase (ALT/SGPT) 37 U/L Alkaline Phosphatase 114 U/L Total Protein 8.2 gm/dl Albumin 4.2 gm/dl Globulin 4.0 gm/dl Albumin/Globulin Ratio 1.1 Thyroid Stimulating Hormone (TSH) 0.605 uIu/ml Urine Color YELLOW Urine Appearance CLEAR Urine pH 8.0 Urine Specific Burket 1.007 Urine Protein NEG Urine Glucose (UA) NEG Urine Ketones NEG Urine Occult Blood NEG Urine Nitrite NEG Urine Bilirubin NEG Urine Urobilinogen NEG Urine Leukocyte Esterase SMALL Urine WBC (Auto) 1-5 /hpf Urine RBC (Auto) 0-4 /hpf Urine Hyaline Casts (Auto) 0 /lpf Urine Epithelial Cells (Auto) 10-20 /lpf Urine Bacteria (Auto) NEG Prothrombin Time 11.0 SECONDS Prothromb Time International Ratio 1.0 Triglycerides Level 157 mg/dl Cholesterol Level 201 mg/dl HDL Cholesterol 41 mg/dl LDL Cholesterol, Calculated 129 mg/dl VLDL Cholesterol, Calculated 31 mg/dl Cholesterol/HDL Ratio 4.9 (Eusebia Lara PA-C) Assessment and Plan 61-year-old female with a history of Sjogren syndrome, lupus, lymphoma, glaucoma presents emergency department with severe dizziness and nausea Dizziness-likely secondary to benign positional vertigo -Appreciate neurology's recommendations. No further imaging needed. -Cancel echo and carotid ultrasound as this does not appear to be in acute CVA -Meclizine 25 mg every 8 hours for the next 3 days -Valium 2 mg twice daily -Continue Zofran 4 mg IV every 6 hours as needed for nausea -Gentle IV hydration -NS + 20 mEq KCl @ 80 cc/hr x 1 liter History of lupus, Sjogren's syndrome, lupus arthritis -Continue Plaquenil 200 mg daily -Hold Mobic for now Headache -Toradol 30 mg IV every 6 hours for 3 doses Glaucoma -Continue Azopt, Timolol and Travatan gtt DVT prophylaxis -Lovenox 40 mg subQ daily -TEDS, SCDs CODE STATUS -LEVEL I FULL CODE (Eusebia Lara PA-C) Reviewed: Pt Seen/Exam by Me (Maura Burkett DO) History Pt feeling a bit better. Still with vertigo with changing positions, but not at rest. Nausea has resolved and she is going to attempt lunch. No SOB or chest pain. No prior hx of vertigo. Agree with HPI/ROS as noted. (Maura Burkett DO) General Appearance: WD/WN, no apparent distress Respiratory: normal breath sounds, no respiratory distress Cardiovascular: normal peripheral pulses, regular rate, rhythm Gastrointestinal: non tender, soft Extremities: non-tender, no pedal edema Neurologic/Psychiatric: alert, normal mood/affect Skin Characteristics: normal color, warm/dry (Maura Burktet DO) Assessment/Plan Agree with plan as outlined above. Neuro feels vertigo PT for [facility]'s when pt is feeling improved Ongoing meclizine (Maura Burkett, DO)
[2016-09-04] MEDS ORDERED: DOXEPIN HCL 25 MG CAP PO SCH (21:00)
[2016-09-04] MEDS ORDERED: PANTOprazole SOD 40 MG TAB PO SCH (21:00)
[2016-09-04] MEDS ORDERED: TRAVOPROST Z 0.004% OPH SOLN 2.5 ML BTL OPB SCH (21:00)
[2016-09-04] MEDS: METOCLOPRAMIDE HCL 10 MG TAB PO SCH (21:22)
[2016-09-05 04:10] VITALS: BP 123/77; PULSE 76; TEMP 36.4; O2SAT 95
[2016-09-05 06:16] LABS: BASO % 0.8 %; BASO ABS # 0.04 K/uL (0-0.2); COMPLETE YES; EOS % 4.7 %; HEMATOCRIT 43.1 % (37-47); LYMPH % 34.6 %; MEAN CELL VOLUME 93.3 fL (80-100); MEAN CORPUSCULAR HEMOGLOBIN 31.4 pg (25-34); MEAN CORPUSCULAR HGB CONC 33.6 g/dl (32-36); MEAN PLATELET VOLUME 10.8 fL (7.4-10.4); MONO % 9.1 %; NEUT % 50.8 %; PLATELET COUNT 162 K/uL (130-400); RED BLOOD COUNT 4.62 M/uL (4.2-5.4); WHITE BLOOD COUNT 4.92 K/uL (4.8-10.8)
[2016-09-05 07:00] LABS: BUN/CREATININE RATIO 17.3 (10-20); CALCIUM 8.8 mg/dl (8.5-10.1); CREATININE 0.7 mg/dl (0.60-1.20); POTASSIUM 3.7 mmol/L (3.5-5.1)
[2016-09-05 07:14] VITALS: BP 136/80; PULSE 74; TEMP 36.5; O2SAT 96
[2016-09-05 08:00] VITALS: O2SAT 96
[2016-09-05] MEDS: METOCLOPRAMIDE HCL 10 MG TAB PO SCH (08:21)
[2016-09-05] MEDS: BRINZOLAMIDE (AZOPT) OPS 10 ML BTL OPB SCH (08:22)
[2016-09-05] MEDS: MECLIZINE HCL 25 MG TAB PO SCH (08:22)
[2016-09-05] MEDS: TIMOLOL GFS 0.5% OPH SOLN 74 DROPS/5 ML BTL OPB SCH (08:22)
[2016-09-05] MEDS: ACETAMINOPHEN 325 MG TAB PO PRN (08:25)
[2016-09-05] MEDS: DIAZEPAM 2MG TAB PO SCH (08:25)
[2016-09-05] MEDS: HEPARIN SOD 5000 UNIT/0.5 ML CARP SQ SCH (08:26)
[2016-09-05] MEDS ORDERED: LISINOPRIL/HCTZ 10/12.5MG TAB PO SCH (09:00)
[2016-09-05] MEDS ORDERED: LISINOPRIL 10 MG TAB PO SCH (09:00)
[2016-09-05] MEDS ORDERED: MELOXICAM 7.5 MG TAB PO SCH (09:00)
[2016-09-05] MEDS ORDERED: HYDROXYCHLOROQUINE SULFATE 200 MG TAB PO SCH (09:00)
[2016-09-05] MEDS ORDERED: ENOXAPARIN 40 MG/0.4 ML SYR SQ SCH (09:00)
--- NOTE | 2016-09-05 09:45 | Neurology Progress Notes ---
Neurology Progress Note Date of Service Sep 05, 2016. Subjective Patient is doing much better today compared to yesterday. She is up walking around more and feels that her symptoms in general are more like a "2 out of 10 ". Yesterday, she was much more symptomatic. She still has some slight dizziness with rapid head movements and changing position but is much better overall. She does have some mild intermittent headache bifrontally but it is helped with medication. She's had no new issues otherwise. CBC and chem profile were unremarkable. Objective Date Time Temp Pulse Resp B/P Pulse Ox O2 Delivery O2 Flow Rate FiO2 09/05/16 07:14 36.5 74 18 136/80 96 Room Air 09/05/16 04:10 36.4 76 18 123/77 95 Room Air 09/05/16 04:00 Room Air 09/05/16 00:00 Room Air 09/04/16 23:05 36.4 70 18 132/86 96 Room Air 09/04/16 20:00 Room Air 09/04/16 19:21 36.6 81 18 160/80 93 Room Air 09/04/16 16:00 Room Air 09/04/16 15:50 131/93 09/04/16 15:30 166/107 09/04/16 15:26 36.6 76 18 142/93 98 Room Air 09/04/16 12:00 Room Air 09/04/16 11:26 36.7 74 18 144/90 95 Room Air 09/04/16 10:02 85 128/79 86 95/42 96 150/88 Last 24 Hours Test 09/05/16 05:55 White Blood Count 4.92 K/uL Red Blood Count 4.62 M/uL Hemoglobin 14.5 g/dL Hematocrit 43.1 % Mean Corpuscular Volume 93.3 fL Mean Corpuscular Hemoglobin 31.4 pg Mean Corpuscular Hemoglobin Concent 33.6 g/dl Platelet Count 162 K/uL Mean Platelet Volume 10.8 fL Neutrophils (%) (Auto) 50.8 % Lymphocytes (%) (Auto) 34.6 % Monocytes (%) (Auto) 9.1 % Eosinophils (%) (Auto) 4.7 % Basophils (%) (Auto) 0.8 % Neutrophils # (Auto) 2.50 K/uL Lymphocytes # (Auto) 1.70 K/uL Monocytes # (Auto) 0.45 K/uL Eosinophils # (Auto) 0.23 K/uL Basophils # (Auto) 0.04 K/uL RDW Standard Deviation 45.7 fL RDW Coefficient of Variation 13.4 % Immature Granulocyte % (Auto) 0.0 % Immature Granulocyte # (Auto) 0.00 K/uL Sodium Level 145 mmol/L Potassium Level 3.7 mmol/L Chloride Level 111 mmol/L Carbon Dioxide Level 25 mmol/L Anion Gap 9.0 mmol/L Blood Urea Nitrogen 12 mg/dl Creatinine 0.70 mg/dl Est Creatinine Clear Calc Drug Dose 97.8 ml/min Estimated GFR () 106.9 Estimated GFR (Non- 92.2 BUN/Creatinine Ratio 17.3 Random Glucose 101 mg/dl Calcium Level 8.8 mg/dl Exam: She is awake and alert. Speech is normal without aphasia or dysarthria. Mood and affect are normal and appropriate. Thought processes are intact. External eye muscles are intact without nystagmus. There is no facial droop. Stance is normal. Coordination is normal the arms. Strength is symmetrical the limbs. Current Inpatient Medications Medications (Trade) Dose Ordered Sig/Leandro Route Start Time Stop Time Status Last Admin Dose Admin Ioversol (Optiray 320) 100 ml UD PRN IV 09/03/16 16:30 09/07/16 16:29 Acetaminophen (Tylenol Tab) 650 mg Q4H PRN PO 09/03/16 22:15 10/03/16 22:14 09/05/16 08:25 650 MG Al Hydrox/Mg Hydrox/Simethicone (Maalox Max Susp) 15 ml Q4H PRN PO 09/03/16 22:15 10/03/16 22:14 Magnesium Hydroxide (Milk Of Magnesia Susp) 30 ml Q12H PRN PO 09/03/16 22:15 10/03/16 22:14 Ondansetron HCl (Zofran Inj) 4 mg Q6H PRN IV 09/03/16 22:15 10/03/16 22:14 09/04/16 15:17 4 MG Gadobutrol (Gadavist) 10 mmol UD PRN IV 09/03/16 23:45 09/07/16 23:44 Heparin Sodium (Porcine) (Heparin Sq 5000 Unit/0.5ml) 5,000 unit Q12 SQ 09/04/16 09:00 10/04/16 08:59 Hydralazine HCl (HydrALAZINE INJ) 10 mg Q6H PRN IV. 09/04/16 05:15 10/04/16 05:14 Brinzolamide (Azopt) 1 drops BID OPB 09/04/16 21:00 10/04/16 20:59 09/05/16 08:22 1 DROPS Diclofenac Sodium (Voltaren 1% Top Gel) 1 appln QID PRN EXT 09/04/16 10:00 10/04/16 09:59 Doxepin HCl (Sinequan Cap) 75 mg HS PO 09/04/16 21:00 10/04/16 20:59 09/04/16 21:23 75 MG Hydroxychloroquine Sulfate (Plaquenil Tab) 200 mg QAM PO 09/05/16 09:00 10/05/16 08:59 09/05/16 08:21 200 MG Methocarbamol (Robaxin Tab) 750 mg Q6H PRN PO 09/04/16 10:00 10/04/16 09:59 09/05/16 08:21 750 MG Metoclopramide HCl (Reglan Tab) 10 mg BID PO 09/04/16 21:00 10/04/16 20:59 09/05/16 08:21 10 MG Timolol Maleate (Timoptic-Xe 0.5% Oph Soln) 1 drops BID OPB 09/04/16 21:00 10/04/16 20:59 09/05/16 08:22 1 DROPS Tramadol HCl (Ultram Tab) 50 mg Q8H PRN PO 09/04/16 10:00 10/04/16 09:59 Travoprost (Travatan Z) 1 drops HS OPB 09/04/16 21:00 10/04/16 20:59 09/04/16 21:20 1 DROPS Pantoprazole Sodium (Protonix Tab) 40 mg QPM PO 09/04/16 21:00 10/04/16 20:59 09/04/16 21:23 40 MG Lisinopril (Zestril Tab) 10 mg QAM PO 09/05/16 09:00 10/05/16 08:59 09/05/16 08:21 10 MG Diazepam (Valium Tab) 2 mg BID PO 09/04/16 11:30 10/04/16 11:29 09/05/16 08:25 2 MG Ketorolac Tromethamine (Toradol Inj) 30 mg Q6H PRN IV 09/04/16 11:30 09/09/16 11:29 Meclizine HCl (Antivert Tab) 25 mg TID PO 09/04/16 14:00 09/07/16 09:01 09/05/16 08:22 25 MG Impression 1. Acute onset vertigo, positional, 09-03-16. She is much better this morning. Neurologic examination is largely unremarkable and she has no focal neurologic signs, meningeal signs, or encephalopathy. She has no nystagmus. The etiology of the vertigo is likely inner ear, however, I believe the hypertension is making this worse/driving it She does have a history of migraines but this does not seem to be atypical migraine attack for her. There is no evidence for acute stroke. Head and neck circulation is unremarkable as well. 2. Hypertension, not adequately controlled still 3. Nonspecific neck pain, likely osteoarthritic in origin. There are no signs of radiculopathy or myelopathy. Plan 1. Continue meclizine 25 mg 3 times a day for the next several days. 2. Consider adding Valium starting at 2 mg by mouth twice a day or 3 times a day as this can really help positional vertigo. Would have to watch sleepiness. 3. Control blood pressure -and lower to a mean arterial pressure of approximately 100. 4. Increase activity 5. I see no need for additional neurologic testing or treatment at this time I no further neurologic recommendations to make at this time. Please contact me if I can be of further assistance on this case. There is no need for neurologic follow-up unless she becomes symptomatic again
[2016-09-05 11:19] VITALS: BP 130/78; PULSE 71; TEMP 36.4; O2SAT 95
[2016-09-05] MEDS ORDERED: ONDA4TAB10 SL (11:37)
[2016-09-05] MEDS ORDERED: ANT25 PO (11:37)
[2016-09-05] MEDS ORDERED: VLM2 PO (11:37)
--- NOTE | 2016-09-05 11:44 | Discharge Instructions ---
Discharge Instructions Date of Service Sep 05, 2016. Admission Reason for Admission: Dizziness Discharge Discharge Diagnosis / Problem: vertigo Discharge Goals Goal(s): Improve function, Therapeutic intervention Activity Recommendations Activity Limitations: resume your previous activity . Instructions / Follow-Up Instructions / Follow-Up You have been admitted to the hospital with complaints of severe dizziness and nausea. This is due to vertigo. Your symptoms have greatly improved. Your blood pressure was initially high, but it has improved The following changes/additions have been made to your medication list: -meclizine 25 mg by mouth 3 times daily. Please take this for at least one more day. Then it can be used on an as needed basis -Valium 2 mg tabs once every 8 hours as needed for severe symptoms -Zofran 4 mg dissolvable tabs under the tongue every 6 hours as needed for nausea Please follow-up with your primary care physician within one week for recheck Call your doctor or return to the emergency department if you have any of the following symptoms: -Fever of 101F or greater -Persistent vomiting - Persistent diarrhea -Lethargy -Chest pain -Shortness of breath -severe dizziness -weakness on one side of your body Current Hospital Diet Patient's current hospital diet: Low Sodium Diet (2gm Na), AHA Diet (Heart Healthy) Discharge Diet Recommended Diet: AHA Diet (Heart Healthy) Procedures Procedures Performed: MRI brain 1. There are a few scattered foci of increased T2 signal within the white matter. While nonspecific, these are likely on a small vessel basis 2. No evidence of intracranial mass. 3. No evidence of acute or subacute infarction Pending Studies Studies pending at discharge: no Laboratory Results Hemoglobin A1c Test 09/03/16 16:00 Range/Units Estimated Average Glucose 97 mg/dl Hemoglobin A1c 5.0 4.5-5.6 % Lipid Panel Test 09/04/16 06:00 Range/Units Triglycerides Level 157 H 0-150 mg/dl Cholesterol Level 201 H 0-200 mg/dl HDL Cholesterol 41 mg/dl Cholesterol/HDL Ratio 4.9 LDL Cholesterol, Calculated 129 mg/dl Medical Emergencies . Who to Call and When: Medical Emergencies: If at any time you feel your situation is an emergency, please call 911 immediately. . Non-Emergent Contact Non-Emergency issues call your: Primary Care Provider . . "Provider Documentation" section prepared by Eusebia Lara. . VTE Core Measure Inpt VTE Proph given/why not?: Unfractionated heparin SQ, T.E.Vu. Hollie, SCD 's
--- NOTE | 2016-09-05 11:52 | Discharge Summary ---
Discharge Summary Date of Service Sep 05, 2016. (Eusebia Lara PA-C) Discharge Summary Admission Date: Sep 03, 2016 at 22:12 Discharge Date: Sep 05, 2016 Discharge Disposition: Home Principal Diagnosis: vertigo Problems/Secondary Diagnoses: (1) Hypertension Status: Chronic Sjogren's disease Rheumatic arthritis Immunizations: Have You Had Influenza Vaccine: Yes History of Tetanus Vaccine?: Unknown History of Pneumococcal: Yes History of Hepatitis B Vaccine: No Procedures: MRI brain IMPRESSION: 1. There are a few scattered foci of increased T2 signal within the white matter. While nonspecific, these are likely on a small vessel basis 2. No evidence of intracranial mass. 3. No evidence of acute or subacute infarction (Eusebia Lara PA-C) Medication Reconciliation New Medications: Ondasetron Odt (Zofran Odt) 4 Mg Tab 4 MG SL Q6H for Nausea, #30 TAB Diazepam (Diazepam) 2 Mg Tab 2 MG PO TID PRN for Dizziness or Vertigo for 3 Days, #9 TAB Meclizine HCl (Meclizine HCl) 25 Mg Tab 25 MG PO TID PRN for Dizziness or Vertigo for 30 Days, #90 TAB Continued Medications: Brinzolamide Oph (Azopt Oph) 1 % Danielle 1 DROP OPB BID, BTL Yskprubaro-[id number] (Butalbital/APAP/Caffeine 50-300-40 mg) 1 Cap Cap 1 TAB PO PRN PRN for Migraine Calcium Carbonate-Vitamin D W/ (Caltrate 600 Plus) 1 Tab Tab 1 TAB PO BID, TAB Diclofenac Sodium (Topical) (Voltaren 1% Top Gel) 1 % Gel 1 APPLN TOP QID PRN for Pain Doxepin (Sinequan) 50 Mg Cap 75 MG PO HS, CAP Ergocalciferol (Vitamin D2) 400 Unit Tab 400 UNITS PO QAM Fluticasone Propionate (Nasal) (Flonase Allergy Relief) 50 Mcg/Act Spr 2 SPRAYS WILLIAM DAILY PRN for ALLERGIC REACTION Hctz/Lisinopril (Lisinopril/Hctz 10/12.5 Mg) 1 Ea Tab 1 TAB PO QAM, TAB Hydroxychloroquine Sulfate (Plaquenil) 200 Mg Tab 200 MG PO QAM, TAB Meloxicam (Mobic) 15 Mg Tab 15 MG PO QAM, TAB Methocarbamol (Robaxin) 750 Mg Tab 750 MG PO Q6H PRN for PRN, TAB Metoclopramide (Reglan) 10 Mg Tab 10 MG PO BID, 0 Refills BID AND PRN Multivitamin (Multivitamin) Tab 1 TAB PO QAM, 0 Refills Omeprazole (Prilosec) 20 Mg Capcr 20 MG PO QPM, 0 Refills Timolol Maleate (Timolol Gfs 0.5% (Generic For Timoptic-Xe)) 74 Drops/5 Ml Soln 1 DROP OPB BID Tramadol (Ultram) 50 Mg Tab 50 MG PO Q8H PRN for Pain, TAB Travoprost (Travatan Z) 0.004 % Gil 1 DROP OPB HS Referrals At Discharge Follow up Referrals: Physician Referral - Within 1 Week with Korey Allison M.D. Discharge Exam Patient reports feeling well today. Dizziness is much improved, in fact it is gone. She denies any nausea. Physical therapy performed at the [facility] yesterday, which made her significantly nauseous. They performed and again today. She tolerated it well. Denies any headache or changes in vision. Review of Systems: Constitutional: No fever Eyes: No worsening of vision Respiratory: No cough Cardiovascular: No chest pain Abdomen: No nausea, No pain Physical Exam: General Appearance: no apparent distress Eyes: EOMI Neck: no JVD Respiratory/Chest: lungs clear Cardiovascular: regular rate, rhythm Abdomen / GI: normal bowel sounds, non tender, soft Extremities: no calf tenderness, no pedal edema Neurologic/Psychiatric: no motor/sensory deficits, oriented x 3 Skin: warm/dry (Eusebia Lara, PASylvesterC) Hospital Course 61-year-old female with a history of Sjogren syndrome, lupus, lymphoma, glaucoma presents emergency department with severe dizziness and nausea Dizziness-secondary to benign positional vertigo -no CVA per MRI brain. No severe vascular dz on MRA brain -CT angio neck normal -Neurology consult -Treated with meclizine 25 mg every 8 hours for 3 days. In addition, she was given Valium 2 mg po BID. Nausea was treated with Zofran 4 mg IV every 6 hours. She was given 1 L of normal saline. -Physical therapy was consulted. The [facility] maneuver was performed. She had symptomatically relief afterwards. HTN-Patient significantly hypertensive on admission. This is improved. -No further medication changes History of lupus, Sjogren's syndrome, lupus arthritis -resume outpt regimen Headache-resolved -Toradol 30 mg IV every 6 hours for 3 doses Glaucoma -Continue Azopt, Timolol and Travatan gtt DVT prophylaxis -Lovenox 40 mg subQ daily -TEDS, SCDs CODE STATUS -LEVEL I FULL CODE Total Time Spent: Greater than 30 minutes This includes examination of the patient, discharge planning, medication reconciliation, and communication with other providers. (Eusebia Lara PA-C) Discharge Instructions Please refer to the electronic Patient Visit Report (Discharge Instructions) for additional information. (Eusebia Lara PA-C) Additional Copies To Korey Allison M.D. Reviewed: Pt Seen/Exam by Me (Maura Burkett DO) History Pt is feeling much improved today. She had vertigo maneuvers yesterday with PT and this has resolved her vertigo. She still feels a bit groggy, but is not used to take medications like valium and meclizine and feels this is wearing off as she moves further out from her last dosing. Tolerating PO without issue. Agree with HPI/ROS as noted. (Maura Burkett DO) General Appearance: WD/WN, no apparent distress Respiratory: normal breath sounds, no respiratory distress Cardiovascular: normal peripheral pulses, regular rate, rhythm Gastrointestinal: non tender, soft Extremities: non-tender, no pedal edema Neurologic/Psychiatric: alert, normal mood/affect, oriented x 3 Skin Characteristics: normal color, warm/dry (Maura Burkett DO) Assessment/Plan Agree with plan as outlined above. Vertigo resolved s/p PT maneuvers PRN meds at home as above Advised to call PCP for quick referral to PT if this returns and she cannot replicate the maneuvers at home Also discussed acupuncture if she has recurrent, ongoing issues (Maura Burkett DO)
[2016-09-05 13:57] VITALS: BP 137/87; PULSE 82; O2SAT 98
== END 2016-09-05 14:38 | disposition home or self-care (01) | DRG 149 ==
LOC: ENRESERVTM → ENRESERVDT → C.EDB 15:46 → C.MED 22:12
PROVIDERS: ADMIT Family Medicine; ATTEND Family Medicine
DX: H81.10 Benign paroxysmal vertigo, unspecified ear (principal); C82.90 Follicular lymphoma, unspecified, unspecified site; N39.0 Urinary tract infection, site not specified; H40.9 Unspecified glaucoma; I16.0 Hypertensive urgency; G43.909 Migraine, unspecified, not intractable, without status migrainosus; M32.9 Systemic lupus erythematosus, unspecified; F17.200 Nicotine dependence, unspecified, uncomplicated

== ENCOUNTER → 2017-01-13 | Outpatient (CLI) | payer BC ==
[~2017-01-13] MED LIST changes: +ANT25 PO; +CALCTAB7 PO; -CHOLTAB3 PO; -CLTP PO; +DICL1GEL12 TOP; -DICL1GEL28 TOP; +DOXE50CA3 PO; +ERGO1TAB10 PO; +FLUT0.15 NAE; -HYDR0.5T PO; +HYDR200T5 PO; +LSN/10125 PO; +MELO15TA4 PO; -MOME50SP5 NAE; -NAPR-1169 PO; +ONDA4TAB10 SL; -OXYC1TAB3 PO; -PRN10125 PO; -SNQ50 PO; -TIMO0.5S2 OPB; +TMPXEOPS OPB; +VLM2 PO
== END | disposition home or self-care (01) ==
LOC: C.RDSM 09:00
PROVIDERS: ATTEND Physical Medicine & Rehabilitation Sports Medicine
DX: M25.562 Pain in left knee (principal)

== ENCOUNTER → 2017-01-22 | Outpatient (CLI) | payer BC ==
--- NOTE | 2017-01-22 11:29 | DIAGNOSTIC IMAGING REPORT ---
LEFT LOWER EXT JOINT WITHOUT CLINICAL HISTORY: LEFT KNEE PAIN pain TECHNIQUE: Multiaxial MRI acquisition COMPARISON STUDY: None FINDINGS: Signal characteristics of the osseous structures are in general unremarkable. There is an osteochondral defect deep to the mid patella measuring 6 x 5 mm. The overlying articular services appears to be intact with no significant loss of bony substance. Mild chondromalacia patella is present. Anterior and posterior cruciate ligaments are intact. The collateral ligaments are unremarkable. The lateral meniscus is unremarkable in configuration and signal character. Medial meniscus demonstrates a focal apical truncation at the mid meniscus level with a small associated horizontal tear. Anterior and posterior horns appear intact. Findings of mild to moderate degenerative narrowing or thinning of the articular services the medial and lateral compartments. IMPRESSION: 1. Mild degenerative thinning of the articular services of the medial and lateral joint compartments. 2. Small focal tear with apical truncation mid medial meniscus. 3. Osteochondral defect mid patella measuring 6 x 5 mm with no evidence for bony substance loss or displacement. 4. Mild chondromalacia patella. The above report was generated using voice recognition software. It may contain grammatical, syntax or spelling errors. Electronically signed by: Jean-Paul Lyon M.D. 01/22/2017 11:27 AM Dictated Date/Time: 01/22/2017 11:23 AM
== END | disposition home or self-care (01) ==
LOC: C.MRI 10:06
PROVIDERS: ATTEND Physical Medicine & Rehabilitation Sports Medicine
DX: M25.562 Pain in left knee (principal); M22.8X2 Other disorders of patella, left knee

== ENCOUNTER → 2017-07-29 | Outpatient (CLI) | payer OTHER ==
[~2017-07-29] MED LIST changes: +MELO-84 PO; -MELO15TA4 PO; -ONDA4TAB10 SL
--- NOTE | 2017-07-30 15:36 | MAMMOGRAPHY REPORT ---
BILATERAL DIGITAL SCREENING MAMMOGRAM TOMOSYNTHESIS WITH CAD: 07/29/2017 CLINICAL HISTORY: Routine screening. Patient has no complaints. TECHNIQUE: Breast tomosynthesis in addition to standard 2D mammography was performed. Current study was also evaluated with a Computer Aided Detection (CAD) system. COMPARISON: Comparison is made to exams dated: 07/23/2016 mammogram, 05/02/2015 mammogram, 04/29/2014 mammogram, 05/17/2013 mammogram, 04/28/2013 mammogram, and 04/27/2012 mammogram - [facility]. BREAST COMPOSITION: The tissue of both breasts is heterogeneously dense, which may obscure small mas ses. FINDINGS: The parenchymal pattern is unchanged. No developing mass, architectural distortion or clus ter of suspicious microcalcifications is seen in either breast. IMPRESSION: ACR BI-RADS CATEGORY 2: BENIGN There is no mammographic evidence of malignancy. A 1 year screening mammogram is recommended. The pa tient will receive written notification of the results. Approximately 10% of breast cancers are not detected with mammography. A negative mammographic report should not delay biopsy if a clinically suggestive mass is present. Desi Parra M.D. ay/:07/29/2017 16:38:13 Group Product Manager: Floridalma CARLOS(Margarita)(Owen)(BD), [facility] letter sent: Normal 1/2 BI-RADS Code: ACR BI-RADS Category 2: Benign
== END | disposition home or self-care (01) ==
LOC: C.MAMM 10:16
PROVIDERS: ATTEND Internal Medicine Pulmonary Disease
DX: Z12.31 Encounter for screening mammogram for malignant neoplasm of breast (principal)

== ENCOUNTER → 2017-10-01 | Outpatient (CLI) | payer BC, OTHER ==
--- NOTE | 2017-10-01 14:50 | DIAGNOSTIC IMAGING REPORT ---
SERIAL VIEW PELVIS; SINGLE VIEW RIGHT HIP CLINICAL HISTORY: Right hip pain. FINDINGS: An AP view of the hips and lower pelvis and a frog-leg view of the right hip are obtained. No prior studies are available for comparison at the time of dictation. The skeletal structures are osteopenic. No fracture is seen involving the hips or bony pelvis. Mild arthritic change and joint space narrowing is seen in the hips. Mild sclerotic change is seen in the sacroiliac joints and symphysis pubis. The overlying soft tissues are within normal limits. There is no evidence of bowel obstruction. IMPRESSION: No acute bony abnormality is seen in the hips or pelvis. Electronically signed by: Alfredito Esposito M.D. 10/01/2017 2:49 PM Dictated Date/Time: 10/01/2017 2:48 PM
--- NOTE | 2017-10-01 15:00 | DIAGNOSTIC IMAGING REPORT ---
RIGHT KNEE INCLUDING BILATERAL STANDING AP VIEWS (4 views) CLINICAL HISTORY: Right knee pain COMPARISON: None DISCUSSION: There is minor bilateral medial joint compartment narrowing. There are no acute fractures. There are no erosive or destructive changes. There is no radiographic evidence of a significant joint effusion. IMPRESSION: 1. Minor osteoarthritic change 2. No fractures identified Electronically signed by: Gerard Darling M.D. 10/01/2017 2:58 PM Dictated Date/Time: 10/01/2017 2:57 PM
== END | disposition home or self-care (01) ==
LOC: C.RDSM 14:30
PROVIDERS: ATTEND Physician Assistant
DX: M17.12 Unilateral primary osteoarthritis, left knee (principal); M25.561 Pain in right knee; M25.551 Pain in right hip

== ENCOUNTER 2019-03-17 06:12 | Inpatient (IN) ==
--- NOTE | 2019-02-21 20:01 | PAT Medication Instructions ---
Medication Instructions Date of Service February 21, 2019 Home Medications Medication Instructions Recorded doxepin 50 mg capsule 50 mg PO HS #30 cap 01/13/19 brinzolamide 1 % eye drops,suspension 1 drops OP BID butalbital 50 mg-acetaminophen 325 mg-caffeine 40 mg-codeine 30 mg cap 2 cap PO Q4H PRN calcium carbonate-vitamin D3 600 mg calcium-200 unit capsule 1 cap PO BID diclofenac 1 % topical gel 4 gm TOP QID PRN hydroxychloroquine 200 mg tablet 200 mg PO QAM lisinopril 10 mg-hydrochlorothiazide 12.5 mg tablet 1 tab PO QAM meclizine 25 mg tablet 25 mg PO TID PRN meloxicam 15 mg tablet 15 mg PO QAM multivitamin tablet 1 tab PO QAM omega 3-ctn-bca-fish oil 1,000 mg (120 mg-180 mg) capsule 1 cap PO QAM omeprazole 20 mg capsule,delayed release 20 mg PO QPM timolol 0.25 % eye drops 1 drops OP BID latanoprost 0.005 % eye drops 1 drops OP QPM doxepin 50 mg capsule 50 mg PO HS cannabidiol (CBD) extract 1 dose SUBLINGUAL BID cranberry extract 1 dose PO QAM fluticasone propionate 50 mcg/actuation nasal spray,suspension 2 sprays INTNAS DAILY PRN turmeric 1 dose PO QAM atorvastatin 20 mg PO QAM loratadine [Claritin] 10 mg PO QAM metoclopramide HCl 10 mg PO QPM tramadol 50 mg PO BID ASK your surgeon for instructions meloxicam 15 mg tablet 15 mg PO QAM butalbital 50 mg-acetaminophen 325 mg-caffeine 40 mg-codeine 30 mg cap 2 cap PO Q4H PRN ASK your prescriber and surgeon hydroxychloroquine 200 mg tablet 200 mg PO QAM STOP taking 2 weeks before surgery (or as soon as possible if surgery is within 2 weeks) omega 9-zbl-ymg-fish oil 1,000 mg (120 mg-180 mg) capsule 1 cap PO QAM cranberry extract 1 dose PO QAM turmeric 1 dose PO QAM STOP taking 24 hours before surgery diclofenac 1 % topical gel 4 gm TOP QID PRN DO NOT take the morning of surgery calcium carbonate-vitamin D3 600 mg calcium-200 unit capsule 1 cap PO BID lisinopril 10 mg-hydrochlorothiazide 12.5 mg tablet 1 tab PO QAM multivitamin tablet 1 tab PO QAM cannabidiol (CBD) extract 1 dose SUBLINGUAL BID loratadine [Claritin] 10 mg PO QAM Take morning of surgery With a small sip of water, OTHERWISE NOTHING TO EAT OR DRINK AFTER MIDNIGHT: brinzolamide 1 % eye drops,suspension 1 drops OP BID meclizine 25 mg tablet 25 mg PO TID PRN (if needed) timolol 0.25 % eye drops 1 drops OP BID fluticasone propionate 50 mcg/actuation nasal spray,suspension 2 sprays INTNAS DAILY PRN (if needed) atorvastatin 20 mg PO QAM tramadol 50 mg PO BID (okay to take up to 4 hours prior to surgery if needed) Take evening before surgery brinzolamide 1 % eye drops,suspension 1 drops OP BID butalbital 50 mg-acetaminophen 325 mg-caffeine 40 mg-codeine 30 mg cap 2 cap PO Q4H PRN (if needed) calcium carbonate-vitamin D3 600 mg calcium-200 unit capsule 1 cap PO BID meclizine 25 mg tablet 25 mg PO TID PRN (if needed) omeprazole 20 mg capsule,delayed release 20 mg PO QPM timolol 0.25 % eye drops 1 drops OP BID latanoprost 0.005 % eye drops 1 drops OP QPM doxepin 50 mg capsule 50 mg PO HS cannabidiol (CBD) extract 1 dose SUBLINGUAL BID fluticasone propionate 50 mcg/actuation nasal spray,suspension 2 sprays INTNAS DAILY PRN (if needed) metoclopramide HCl 10 mg PO QPM tramadol 50 mg PO BID Other Notes If you have any questions please call us at [phone] or [phone] or [phone] or [phone]
--- NOTE | 2019-02-22 11:55 | Anesthesiology Consultation ---
Date of Service February 22, 2019 Assessment & Plan (1) Encounter for pre-operative examination: Chart Review Chart Review: Pending: Refer to Additional Notes / Consult section ((CXR, labs, allergy testing)) Consults Requested Loom Operator Pt with history of rash to both novacaine and lidocaine. Pt to see cloth checker for allergy testing prior to scheduled surgery. Teaching & Discussion Pt instructed to remain NPO after midnight to liquids. Due to history of gastroparesis, patient instructed to eat foods the day prior to surgery that she can digest easily and she was encouraged to remain NPO to solid foods after dinner time the day prior to surgery to allow a longer GI transit time. GA, spinal and nerve blocks were discussed with the patient. The patient is to be scheduled for allergy testing due to having allergies to both procaine and lidocaine. Ordered scopolamine for placement the DOS due to history of severe PONV. History Surgery Operation Date: 03/17/19 08:50 Proposed Procedures p Right Total Knee Arthroplasty - Devin Solorzano MD NOTE - Pt schedule for LEFT knee surgery - NOT RIGHT knee surgery Height/Weight Height: 5 ft 5 in Weight: 104.7 kg Allergies Allergy/AdvReac Type Severity Reaction Status Date / Time lidocaine Allergy Intermediate "NOVOCAINE" Verified 02/19/19 09:40 FULL BODY RASH procaine Allergy Intermediate rash over Verified 02/19/19 09:40 entire body Penicillins Allergy Mild RASH Verified 02/19/19 09:40 sulfamethoxazole Allergy Gastrointestinal Verified 02/19/19 09:40 [From Bactrim] Upset trimethoprim [From Bactrim] Allergy Gastrointestinal Verified 02/19/19 09:40 Upset clarithromycin AdvReac Intermediate G I Verified 02/19/19 09:40 UPSET-FELT AWFUL codeine AdvReac Intermediate SEVERE Verified 02/19/19 09:40 HEADACHE meperidine AdvReac Intermediate SEVERE Verified 02/19/19 09:40 HEADACHE Sulfa (Sulfonamide AdvReac Intermediate G I UPSET Verified 02/19/19 09:40 Antibiotics) FELT AWFUL Medications Home Medications Medication Instructions Recorded Confirmed Last Taken brinzolamide 1 % eye 1 drops OP BID ml 11/24/18 02/19/19 Unknown drops,suspension butalbital 50 mg-acetaminophen 325 2 cap PO Q4H PRN 11/24/18 02/19/19 Unknown mg-caffeine 40 mg-codeine 30 mg cap calcium carbonate-vitamin D3 600 1 cap PO BID cap 11/24/18 02/19/19 Unknown mg calcium-200 unit capsule diclofenac 1 % topical gel 4 gm TOP QID PRN 11/24/18 02/19/19 Unknown hydroxychloroquine 200 mg tablet 200 mg PO QAM tab 11/24/18 02/19/19 Unknown lisinopril 10 1 tab PO QAM 11/24/18 02/19/19 Unknown mg-hydrochlorothiazide 12.5 mg tablet meclizine 25 mg tablet 25 mg PO TID PRN 11/24/18 02/19/19 Unknown meloxicam 15 mg tablet 15 mg PO QAM 11/24/18 02/19/19 Unknown multivitamin tablet 1 tab PO QAM 11/24/18 02/19/19 Unknown omega 2-alz-gcm-fish oil 1,000 mg 1 cap PO QAM 11/24/18 02/19/19 Unknown (120 mg-180 mg) capsule omeprazole 20 mg capsule,delayed 20 mg PO QPM 11/24/18 02/19/19 Unknown release timolol 0.25 % eye drops 1 drops OP BID 11/24/18 02/19/19 Unknown latanoprost 0.005 % eye drops 1 drops OP QPM 12/28/18 02/19/19 Unknown doxepin 50 mg capsule 50 mg PO HS #30 cap 01/13/19 02/19/19 Unknown cannabidiol (CBD) extract 1 dose SUBLINGUAL BID 01/28/19 02/19/19 Unknown cranberry extract 1 dose PO QAM 01/28/19 02/19/19 Unknown fluticasone propionate 50 2 sprays INTNAS DAILY PRN 01/28/19 02/19/19 Unknown mcg/actuation nasal spray,suspension turmeric 1 dose PO QAM 01/28/19 02/19/19 Unknown atorvastatin 20 mg PO QAM 02/19/19 02/19/19 Unknown loratadine [Claritin] 10 mg PO QAM 02/19/19 02/19/19 Unknown metoclopramide HCl 10 mg PO QPM 02/19/19 02/19/19 Unknown tramadol 50 mg PO BID 02/19/19 02/19/19 Unknown Past Medical History Medical History Degenerative disc disease Follicular lymphoma DX 6 YEARS AGO - NO TREATMENT - MONITORING Gastroparesis Glaucoma HTN (hypertension) History of anemia REQUIRED IRON INFUSIONS - 3 YEARS AGO History of migraine Hyperlipidemia Lupus Macular hole, both eyes s/p surgical repair Osteoarthritis Osteoporosis Sjogren's disease Vertigo Exercise / Class Metabolic Activity III < 4 Walking/Shop/Light housework Negative for chest pain or shortness of breath. Past Family History Family History Family/Other Myocardial infarction Dyslipidemia Hyperthyroidism Atrial fibrillation Diabetes Hypertension History of multiple strokes Mother Breast cancer Dyslipidemia Father History of multiple strokes Hyperthyroidism Hypertension Past Surgical History Surgical History H/O abdominal hysterectomy W/ USO H/O myringotomy H/O sinus surgery History of colonoscopy History of esophagogastroduodenoscopy (EGD) History of lymph node biopsy X 2 Hx of LASIK Hx of non-cataract eye surgery Nausea and vomiting after administration of anesthetic agent S/P cataract surgery S/P dilatation and curettage Past Anesthesia History No Hx of Anesthesia Complications History of PONV History of PONV and Hx of Motion Sickness Social History Smoking Status: Never smoker Do You Dip or Chew Tobacco: No Hx Alcohol Use: Yes Alcohol type: wine alcohol intake frequency: holidays/special occasions only Hx Substance Use: No substance use type: does not use Review of Systems Patient denies history of abnormal bleeding or bleeding disorder. Patient denies active use of anticoagulants other than low dose aspirin. Patient denies numbness, tingling or weakness in lower extremities. Patient denies active symptoms of GERD. Physical Exam Vital Signs Last Vital Signs Temp 36.8 C 02/22/19 11:28 Pulse 80 02/22/19 11:28 Resp 18 02/22/19 11:28 BP 137/85 02/22/19 11:28 Pulse Ox 97 02/22/19 11:28 Constitutional + obese ENMT Mouth: no TMJ abnormality and oral opening not small Thyromental Distance: > or= 3.5 Finger Breadths Mallampati Class: I Mouth / Teeth: 1. implant 2. crown Neck normal visual inspection and + limited neck extension (due to pain) Respiratory normal respiratory effort Auscultation: lungs clear to auscultation bilaterally Cardiovascular Rate/Rhythm: regular rate and regular rhythm Heart Sounds: no murmur Vessels: no carotid bruit Neurologic moves all extremities Motor/Sensory: no sensory deficit Psychiatric Orientation: alert and oriented x 3 Testing Laboratory Results 02/22/19 11:25 PT 10.6 Seconds (9.0-12.0) 02/22/19 11:25 INR 1.0 (0.9-1.1) 02/22/19 11:25 APTT 27.6 Seconds (21.0-31.0) 02/22/19 11:25 Urine Color Yellow 02/22/19 11:25 Urine Appearance Clear (Clear) 02/22/19 11:25 Urine pH 6.5 (4.5-7.5) 02/22/19 11:25 Ur Specific [place] 1.012 (1.000-1.030) 02/22/19 11:25 Urine Protein Negative (Negative) 02/22/19 11:25 Urine Glucose (UA) Negative (Negative) 02/22/19 11:25 Urine Ketones Negative (Negative) 02/22/19 11:25 Urine Nitrite Negative (Negative) 02/22/19 11:25 Ur Leukocyte Esterase Negative (Negative) 02/22/19 11:25 Electrocardiogram Date: 01/28/19 Findings: + NSR @ (66) Borderline FL prolongation
[2019-02-22 11:58] LABS: Basophils # (auto) 0.04 K/uL (0-0.2); Basophils % (auto) 0.7 %; Eosinophils # (auto) 0.21 K/uL (0-0.5); Eosinophils % (auto) 3.7 %; Hematocrit (blood only) 40.7 % (37-47); Hemoglobin 14.5 g/dL (12.0-16.0); Immature Granulocytes # (auto) 0.01 K/uL (0.00-0.02); Immature Granulocytes % (auto) 0.2 %; Lymphocytes # (auto) 1.63 K/uL (1.2-3.4); Lymphocytes % (auto) 28.7 %; Mean Corpuscular Hemoglobin 31.6 pg (25-34); Mean Corpuscular Hgb Conc 35.6 g/dL (32-36); Mean Corpuscular Volume 88.7 fL (80-100); Mean Platelet Volume 10.5 fL (7.4-10.4); Monocytes # (auto) 0.56 K/uL (0.11-0.59); Monocytes % (auto) 9.9 %; Neutrophils # (auto) 3.23 K/uL (1.4-6.5); Neutrophils % (auto) 56.8 %; Platelet Count 167 K/uL (130-400); RDW Coefficient of Variation 12.8 % (11.5-14.5); RDW Standard Deviation 40.8 fL (36.4-46.3); Red Blood Count 4.59 M/uL (4.2-5.4); White Blood Count 5.68 K/uL (4.8-10.8)
[2019-02-22 12:12] LABS: Partial Thromboplastin Time 27.6 Seconds (21.0-31.0); Prothrombin Time 10.6 Seconds (9.0-12.0)
[2019-02-22 12:17] LABS: Appearance Urine Clear (Clear); Bilirubin Urine Negative (Negative); Blood Urine Negative (Negative); Color Urine Yellow; Glucose Urine UA Negative (Negative); Ketones Urine Negative (Negative); Leukocyte Esterase Urine Negative (Negative); Nitrite Urine Negative (Negative); Protein Urine Negative (Negative); Specific Gravity Urine 1.012 (1.000-1.030); Urobilinogen Urine Negative (Negative); pH Urine 6.5 (4.5-7.5)
--- NOTE | 2019-02-22 12:40 | XRay Report ---
XR chest Pre-admission PA/Lat HISTORY: 64 years-old Female PAT preoperative exam. No acute chest complaints COMPARISON: Chest radiograph 04/10/2016 TECHNIQUE: PA and lateral views of the chest FINDINGS: Cardiomediastinal and hilar silhouettes are within normal limits. No pneumothorax, pleural effusion, focal airspace consolidation or overt pulmonary edema. Mild hyperinflation. Lateral left lung base is partially excluded from the [id number] on the PA view. Degenerative changes of the shoulders and spine. Cholecystectomy. IMPRESSION: No acute process. The above report was generated using voice recognition software. It may contain grammatical, syntax o r spelling errors. Electronically signed by: Blake Hamilton M.D. 02/22/2019 12:39 PM
[2019-02-22 13:20] LABS: BUN Creatinine Ratio 22.5 (10-20); Calcium 9.3 mg/dl (8.5-10.1); Creatinine Clr Calc Pharmacy 92.3 ml/min; Est GFR (African American) 101.1; Est GFR (Non-African American) 87.3; Potassium 3.7 mmol/L (3.5-5.1)
[~2019-03-17 06:12] MED LIST changes: -ANT25 PO; -BRIN1SUS OPB; -BUTA1CAP20 PO; -CALCTAB7 PO; +CEFAZOLIN 2000MG 2,000 MG/15 ML SYR IV SCH; -DICL1GEL12 TOP; -DOXE50CA3 PO; -ERGO1TAB10 PO; -FLUT0.15 NAE; -HYDR200T5 PO; +LR 500ML BOLUS, THEN 15ML/HR IV SCH; +LR 60ML/HR IV SCH; -LSN/10125 PO; -MELO-84 PO; -METH-307 PO; -METO-157 PO; -MULT-506 PO; -PRLSR20 PO; +ROPIVACAINE 0.5% HCL/PF 150 MG, BUPIVACAINE 0.5% MPF 30 ML, EPINEPHrine 0.15 MG, Ketoro... INFIL SCH; +SCOPOLAMINE 1.5 MG TDSY TD SCH; -TMPXEOPS OPB; -TRAM-10 PO; +TRANEXAMIC ACID 1,000 MG **IV Pre-op IV SCH; -TRAV0.00 OPB; -VLM2 PO
[2019-03-17] MEDS ORDERED: BUPIVACAINE/EPINEPHRINE 0.25% 1:200,000 30 ML VIAL ONE (06:26)
[2019-03-17] MEDS ORDERED: BUPIVACAINE 0.5 % 5 MG/1 ML PF 10ML VIAL ONE (06:26)
[2019-03-17] MEDS ORDERED: DEXAMETHASONE SOD INJ 4 MG/ML VIAL ONE (06:26)
--- NOTE | 2019-03-17 06:37 | History & Physical Bridge Note ---
Date of Service March 17, 2019 History & Physical Bridge Note I have examined the patient, reviewed the History & Physical and in the interval since the performance of the History & Physical I have noted the following changes of clinical significance:consent obtained. no changes noted
[2019-03-17] MEDS ORDERED: MIDAZOLAM HCL 1 MG/ML 2ML VIAL ONE ×2 (07:51→10:04)
[2019-03-17] MEDS ORDERED: fentaNYL citrate 100 MCG/2 ML VIAL ONE (07:51)
[2019-03-17] MEDS ORDERED: ORTHO JOINT ANESTHETIC ONE (08:44)
--- NOTE | 2019-03-17 09:17 | Anesthesiology Progress Note ---
Date of Service March 17, 2019 Anesthesia Post Procedure Vital Signs Vital Signs: Temp Pulse Resp BP Pulse Ox 03/17/19 06:43 36.8 C 87 20 150/92 H 97 Transfer of Care Handoff Completed per policy Notes Mental Status: alert / awake / arousable Patient Amnestic to Procedure: Yes Nausea / Vomiting: adequately controlled Pain: adequately controlled Airway Patency, RR, SpO2: stable & adequate BP & HR: stable & adequate Hydration State: stable & adequate Neuraxial Anesthesia: was administered and sensory block is resolving Anesthetic Complications: no major complications apparent
[2019-03-17] MEDS ORDERED: PROPOFOL IV EMULSION 10 MG/ML 20 ML VIAL IV ONE (10:29)
--- NOTE | 2019-03-17 10:33 | Post Operative Brief Note ---
Immediate Post Op Note v1 Date of Surgery March 17, 2019 Pre & Post Diagnosis Operation Date: 03/17/19 08:50 Pre-Op Diagnosis: Left Knee End-Stage Degenerative Joint Disease Post-Op Diagnosis: Left Knee End-Stage Degenerative Joint Disease I identified the patient and participated in the time-out.: Yes Procedure Operation Date: 03/17/19 08:50 Actual Procedures p Left Total Knee Arthroplasty(Left) - Devin Solorzano MD Surgeon Devin Solorzano MD Health Safety Coordinator [facility] Estimated Blood Loss 25 Findings Consistent with Post-Op Diagnosis
--- NOTE | 2019-03-17 10:41 | Operative Report ---
DATE OF OPERATION: 03/17/2019 SURGEON: Devin Solorzano MD RN NIGHT: Benny Billings PA-C. No resident or fellow available. PREOPERATIVE DIAGNOSIS: Osteoarthritis with varus deformity, left knee. POSTOPERATIVE DIAGNOSIS: Osteoarthritis with varus deformity, left knee. OPERATION PERFORMED: Cemented left total knee replacement. PERIOPERATIVE SITUATION: Medically cleared female with intractable knee pain, has failed conservative management. X-rays reveal medial joint space narrowing with varus alignment. Physical exam and x-ray consistent with medial osteoarthritis. At this point in time, she has in age group and has symptomatic enough that she wants to proceed with knee replacement. She has failed all conservative management. She understands no guarantees. DESCRIPTION OF PROCEDURE: The patient was identified, consent verified. Antibiotics confirmed as being given. Left lower extremity was prepped and draped in usual routine fashion. Tourniquet inflated to 300 mmHg after exsanguination of limb with a rubber Esmarch bandage for a total of 49 minutes. Midline exposure utilized. Parapatellar arthrotomy performed, releases performed to get rid of the varus, to get rid of the patella baja. Synovectomy completed. Patella was then able to be everted and knee flexed. Good exposure was obtained. There was grade 4 disease in the entire medial compartment, lateral compartment was relatively healthy, patellofemoral compartment was relatively healthy. The ACL and PCL were resected after the distal femur was entered with a drill bit. The distal femur was then resected 12 mm, proximal tibia resected 4 mm, extension gap was excellent. The relative tightness on the medial side was just a little bit more and extension gap, so it was released just a little bit more and it was very matched. The femur was sized between a 4 and a 3, was measured 4, cut 3. No notching. The flexion gap was then checked. It was excellent. The box cut was then made. The size 3 trial fit well. The tibia was then broached and reamed to a size 3 and a 10 mm insert placed and the knee was stable, had still a little bit of tightness in full extension. Medially, a little further release performed and it was excellent. The patella tracked well. The patella was then resected leaving 15 mm measured 38 mm for a trial. The seating holes made and the trial tracked well. The Orthomix was then injected all about the knee including posteriorly. The wound was then irrigated after all implants were removed with Betadine and Pulsavac and then the permanent implants cemented in position, tibia, femur and patella in that sequence. After 12 minutes, the tourniquet deflated. Minor bleeding points controlled with electrocautery. The knee was then flexed at 14 minutes, the trial spacer removed, minor cement removal required. Wound irrigated with Betadine and Pulsavac, the permanent liner seated. The knee reduced and then closed at 30-40 degrees of flexion using #2 Vicryl, #1 Vicryl, 2-0 Vicryl and stainless steel clips. Appropriate dressing applied. The patient transferred to recovery room in satisfactory condition having tolerated the procedure well. EBL was 25 mL. PATHOLOGY: Pending on bone. Deep venous thrombosis prophylaxis per protocol. SUMMARY OF IMPLANTS: Left femur, size 3 posterior cruciate substituting mobile bearing tray, size 3 patella, size 38 insert posterior cruciate substituting 3 x 10. I attest to the content of the Intraoperative Record and any orders documented therein. Any exception s are noted below.
--- NOTE | 2019-03-17 10:45 | Operative Report ---
Post Operative Report Pre & Post Diagnosis Operation Date: 03/17/19 08:50 Pre-Op Diagnosis: Left Knee End-Stage Degenerative Joint Disease Post-Op Diagnosis: Left Knee End-Stage Degenerative Joint Disease I identified the patient and participated in the time-out.: Yes Procedure Operation Date: 03/17/19 08:50 Actual Procedures p Left Total Knee Arthroplasty(Left) - Devin Solorzano MD Surgeon ANTONIO Solorzano MD Consumer Credit Counselor caitlin Estimated Blood Loss 25 Findings Consistent with Post-Op Diagnosis Specimens see operative report Drains none Complications none Disposition Accompanied Patient To Recovery: Yes Disposition: Recovery Room Indications This 64-year-old white female presented to the office with complaints of intractable left knee pain. She had tried conservative care measures including NSAIDs and activity modification, without improvement. She elected to proceed with surgical intervention after being educated about potential risks and outcomes. Preoperative imaging was obtained. Description of Procedure Patient was administered a spinal anesthetic and then taken to the operating room where she was given sedation. She was prepped and draped in the usual sterile fashion. Please see Dr. Solorzano's operative report for specifics of the procedure. I was present for the entire case from initial patient positioning through final wound closure. Assistance was provided in tissue retraction, hemostasis, trial implant placement, final implant placement, and final wound closure. Patient was taken to the recovery room in satisfactory condition. I attest to the content of the Intraoperative Record and any orders documented therein. Any exceptions are noted below.
--- NOTE | 2019-03-17 11:12 | Progress Note ---
DATE: 03/17/2019 SUBJECTIVE: Status post left total knee replacement. The patient is visited in the recovery room. She is doing well. She denies any chest pain, shortness of breath, fever, chills, nausea, vomiting or headache. Vital signs are stable. She is afebrile. Wound dressing clean, dry and intact. X-ray pending. Neurovascular check reveals active plantarflexion of the toes and the ankle beginning trace dorsiflexion trace femoral nerve function. ASSESSMENT: Overall doing well. Continue with postop care pathway. Obtain x-ray. Mobilize when Neurovascular check normalizes. Minimize IV overload. Hep-Lock IV as soon as p.o. well. MTDD
--- NOTE | 2019-03-17 11:40 | Discharge Summary ---
CHIEF COMPLAINT: Left knee pain. HISTORY OF PRESENT ILLNESS: A 64-year-old female who presented for left total knee replacement for significant medial compartment osteoarthritis. She has failed conservative management and is requesting total knee replacement. Hospital course to date has been uneventful. PAST MEDICAL HISTORY: Remarkable for hypertension, hypercholesterolemia, obesity, cutaneous lupus erythematosus, fibromyalgia, gastroparesis, GERD, migraine headaches, osteoarthritis, chronic back pain, follicular lymphoma, and Sjogren disease. PAST SURGICAL HISTORY: Remarkable for hysterectomy, D and C, sinus surgery, cholecystectomy, skin biopsy, macular eye surgery, retinal detachment, endoscopy, and colonoscopy. PREADMISSION MEDICATIONS: Include atorvastatin, Azopt, Caltrate, doxepin, fish oil, hydrochlorothiazide, lisinopril, omeprazole, Plaquenil, Reglan, timolol ophthalmic solution, tramadol, Travatan ophthalmic solution, CBD oil, meloxicam, and Voltaren gel. She will discontinue all of the anti-inflammatories, continue all of her other medications, add p.r.n. pain medication, see prescription, and Coumadin to keep INR 1.8-2.2. ALLERGIES: TO CODEINE, SULFA, NOVOCAIN, BIAXIN, DEMEROL, PENICILLIN. She was tested, a lot of these were reversed. She can tolerate lidocaine. FAMILY HISTORY: Noncontributory. SOCIAL HISTORY: Reveals she is . No tobacco use. No alcohol use. REVIEW OF SYSTEMS: Noncontributory. ASSESSMENT AND PLAN: Status post left total knee replacement. At this point in time, continue with postop care pathway. Potential discharge tomorrow if she does well overnight.
[2019-03-17] MEDS ORDERED: ePHEDrine sulfate 50 MG/ML AMP IV PRN (11:57)
[2019-03-17] MEDS ORDERED: ATROPINE SULFATE 0.1 MG/ML 10ML SYR IV PRN (11:57)
--- NOTE | 2019-03-17 11:57 | Anesthesiology Progress Note ---
Date of Service March 17, 2019 Anesthesia Post Procedure Vital Signs Vital Signs: Temp Pulse Pulse Resp BP BP Pulse Ox 03/17/19 11:30 36.4 C L 72 16 136/71 100 03/17/19 11:20 36.4 C L 72 16 140/71 97 03/17/19 11:10 77 16 154/75 H 97 03/17/19 11:00 75 16 144/75 H 98 03/17/19 10:50 36.7 C 79 16 140/74 96 03/17/19 10:42 36.7 C 84 16 145/81 H 99 03/17/19 06:43 36.8 C 87 20 150/92 H 97 Transfer of Care Handoff Completed per policy Notes Mental Status: alert / awake / arousable Patient Amnestic to Procedure: Yes Nausea / Vomiting: adequately controlled Pain: adequately controlled Airway Patency, RR, SpO2: stable & adequate BP & HR: stable & adequate Hydration State: stable & adequate Neuraxial Anesthesia: was administered and sensory block is resolving Anesthetic Complications: no major complications apparent
--- NOTE | 2019-03-17 11:57 | XRay Report ---
XR knee LT 1 or 2V routine CLINICAL HISTORY: Postoperative evaluation. COMPARISON: Left knee radiographs February 08, 2019. FINDINGS: Alignment of the total left knee arthroplasty is anatomic. No fracture or unexpected radio paque foreign body. Hardware is intact. IMPRESSION: Expected findings following total left knee arthroplasty. Electronically signed by: Farzad Sandy M.D. 03/17/2019 11:56 AM
[2019-03-17] MEDS ORDERED: FLUTICASONE PROPIONATE NA SPR 16 GM BTL PRN (12:14)
[2019-03-17] MEDS ORDERED: NALOXONE HCL 0.4 MG/1 ML VIAL/CARP IV PRN (12:14)
[2019-03-17] MEDS ORDERED: ALUMINUM/MAGNESIUM SUSP 30 ML UDC PO PRN (12:14)
[2019-03-17] MEDS ORDERED: BISACODYL 10 MG SUPP PR PRN (12:14)
[2019-03-17] MEDS ORDERED: DiphenhydrAMINE HCL 50 MG/ML VIAL IV PRN (12:14)
[2019-03-17] MEDS ORDERED: MAGNESIUM HYDROXIDE SUSP 30 ML UDC PO PRN (12:14)
[2019-03-17] MEDS ORDERED: HYDROmorphone INJ 0.5 MG/0.5 ML SYR IV PRN (12:14)
[2019-03-17] MEDS ORDERED: SODIUM CHLORIDE 0.9% 1000ML 1,000 ML IV SCH (13:15)
[2019-03-17] MEDS: KETOROLAC TROMETHAMINE 15 MG/ML VIAL IV SCH ×2 (13:20→20:17)
[2019-03-17] MEDS: ACETAMINOPHEN 500 MG TAB PO SCH ×2 (13:21→20:48)
[2019-03-17] MEDS: OXYCODONE HCL IR 5 MG TAB (IMMEDIATE RELEASE) PO PRN ×3 (13:53→22:38)
[2019-03-17] MEDS ORDERED: WARFARIN SOD 5 MG TAB PO ONE (16:00)
[2019-03-17] MEDS ORDERED: CHECK SCOPOLAMINE PATCH PLACEMENT SCH (16:00)
[2019-03-17] MEDS: ONDANSETRON INJ 2 MG/ML 2 ML VIAL IV PRN (16:35)
[2019-03-17] MEDS: FERROUS GLUCONATE 324 MG TAB PO SCH (16:41)
[2019-03-17] MEDS: ASCORBIC ACID 500 MG TAB PO SCH (16:41)
[2019-03-17] MEDS ORDERED: TRANEXAMIC ACID 1,000 MG in 0.9 % SODIUM CHLORIDE 100 ML IV SCH (16:48)
[2019-03-17] MEDS: CEFAZOLIN 2000MG 2,000 MG/15 ML SYR IV SCH (16:49)
[2019-03-17] MEDS: METOCLOPRAMIDE HCL INJ 5 MG/ML 2 ML VIAL IV PRN (17:27)
[2019-03-17] MEDS: TIMOLOL MALEATE 0.25% OP SOLN 5 ML BTL OP SCH (20:16)
[2019-03-17] MEDS: BRINZOLAMIDE (AZOPT) OPS 10 ML BTL OP SCH (20:16)
[2019-03-17] MEDS: DOCUSATE SODIUM 100 MG CAP PO SCH (20:18)
[2019-03-17] MEDS ORDERED: LATANOPROST 0.005% OP SOLN 2.5 ML BTL OP SCH (21:00)
[2019-03-17] MEDS ORDERED: PANTOprazole 40 MG TAB PO SCH (21:00)
[2019-03-17] MEDS ORDERED: SENNA 8.6 MG TAB PO SCH (21:00)
[2019-03-18] MEDS: KETOROLAC TROMETHAMINE 15 MG/ML VIAL IV SCH ×2 (01:44→08:31)
[2019-03-18] MEDS: CEFAZOLIN 2000MG 2,000 MG/15 ML SYR IV SCH (01:45)
[2019-03-18] MEDS: OXYCODONE HCL IR 5 MG TAB (IMMEDIATE RELEASE) PO PRN ×3 (03:48→12:51)
[2019-03-18 05:37] LABS: Hematocrit (blood only) 33.8 % (37-47); Hemoglobin 11.4 g/dL (12.0-16.0); Mean Corpuscular Hemoglobin 30.3 pg (25-34); Mean Corpuscular Hgb Conc 33.7 g/dL (32-36); Mean Corpuscular Volume 89.9 fL (80-100); Platelet Count 169 K/uL (130-400); RDW Standard Deviation 42.6 fL (36.4-46.3); Red Blood Count 3.76 M/uL (4.2-5.4); White Blood Count 10.93 K/uL (4.8-10.8)
[2019-03-18 05:46] LABS: INR 1.1 (0.9-1.1)
[2019-03-18] MEDS: ACETAMINOPHEN 500 MG TAB PO SCH (05:50)
[2019-03-18 06:07] LABS: BUN Creatinine Ratio 18.5 (10-20); Calcium 8.9 mg/dl (8.5-10.1); Creatinine Clr Calc Pharmacy 85.7 ml/min; Est GFR (African American) 94.7; Est GFR (Non-African American) 81.7; Potassium 3.8 mmol/L (3.5-5.1)
[2019-03-18 06:54] VITALS: TEMP 97.5; O2SAT 100
--- NOTE | 2019-03-18 07:32 | Progress Note ---
DATE: 03/17/2019 SUBJECTIVE: Postop day #1 status post left total knee replacement. The patient is doing well. She does not have any further nausea. She notes her pain is well managed. She states it is not as bad as it was when it peaked yesterday. She denies any chest pain, shortness of breath, fever, chills, nausea, vomiting or headache. She feels hungry. OBJECTIVE: Vital signs are stable. She is afebrile. Hematocrit stable at 33. INR is 1.1. PRP is good. Neurovascular check femoral sciatic nerve is good. Dressing clean, dry and intact. Neurovascular check femoral sciatic nerve is normal. ASSESSMENT: Doing well. Plan is to discharge today after PT, OT. Dressing change. Discharge on 4 mg Coumadin. Check INR on Friday. Follow up in 2 weeks. LOVE
[2019-03-18] MEDS ORDERED: dexAMETHasone 10 MG in SYRINGE 0 ML IV SCH (08:00)
[2019-03-18] MEDS: ASCORBIC ACID 500 MG TAB PO SCH (08:31)
[2019-03-18] MEDS: DOCUSATE SODIUM 100 MG CAP PO SCH (08:32)
[2019-03-18] MEDS: FERROUS GLUCONATE 324 MG TAB PO SCH (08:32)
[2019-03-18] MEDS: BRINZOLAMIDE (AZOPT) OPS 10 ML BTL OP SCH (08:35)
[2019-03-18] MEDS: TIMOLOL MALEATE 0.25% OP SOLN 5 ML BTL OP SCH (08:35)
--- NOTE | 2019-03-18 08:45 | Orthopedic Progress Note ---
Date of Service March 18, 2019 Assessment & Plan (1) Status post left knee replacement: Dressing was changed today by me. This will remain in place until Friday and then she may change it as needed. PT/OT today. Discharge to home with home health services by [facility]. Patient will receive her Coumadin dose here today prior to discharge. Continue at Coumadin 4 mg daily until rechecked on Friday. Patient did receive Percocet just prior to my arrival. Pain should improve. New prescriptions for Percocet and Coumadin has been E scribed. Continue with ice and elevation of the knee as needed. Subjective This 64-year-old white female is seen in her room this morning. She states she was doing well earlier today. She got up to go to the bathroom and now has significant pain in her left knee. She just received Percocet prior to my arrival. No numbness or tingling. She denies any chest pain or shortness of breath. No vomiting. No other complaints. Review of Systems Review of Systems: unchanged from preop Physical Exam Physical Exam: General: Well-developed, well-nourished, elderly white female, in no acute distress. Laying on a bed. Alert and oriented. Musculoskeletal: Left knee has a compression wrap in place. Upon removal, she has some dried blood at the proximal wound. There is no active bleeding at this time. Expected postoperative edema and ecchymosis. [place] are intact. Wound edges well approximated. Intact motor function to the hip, knee, and ankle. She is able to perform straight leg raise with some assistance. Intact flexion and extension of the ankle and toes. Neurologic: Gross sensation is intact across the left lower extremity by soft touch. Peripheral pulses are 2+. Results & Data Vital Signs (Past 12 Hours) Vital Signs Temp Pulse Resp BP Pulse Ox 03/18/19 06:53 36.4 C L 67 17 120/72 100 03/18/19 04:20 36.6 C 67 18 111/69 98 03/17/19 23:15 36.4 C L 70 18 119/75 99 Laboratory Results INR is 1.1 today. H&H is 11.4 and 33.8. PRP is unremarkable.
[2019-03-18] MEDS ORDERED: LORATADINE 10 MG TAB PO SCH (09:00)
[2019-03-18] MEDS ORDERED: LISINOPRIL/HCTZ 10/12.5MG TAB PO SCH (09:00)
[2019-03-18] MEDS ORDERED: ATORVASTATIN 20 MG TAB PO SCH (09:00)
[2019-03-18] MEDS ORDERED: MULTIVITAMIN TAB PO SCH (09:00)
[2019-03-18] MEDS ORDERED: HYDROXYCHLOROQUINE SULFATE 200 MG TAB PO SCH (09:00)
[2019-03-18] MEDS: METOCLOPRAMIDE HCL INJ 5 MG/ML 2 ML VIAL IV PRN (09:18)
[2019-03-18 09:45] VITALS: BP 150/92; PULSE 87
[2019-03-18] MEDS ORDERED: WARFARIN SOD 5 MG TAB PO ONE (10:00)
[2019-03-18] MEDS: ONDANSETRON INJ 2 MG/ML 2 ML VIAL IV PRN (12:53)
[2019-03-18] MEDS ORDERED: ORTHO WARFARIN NOMOGRAM SCH (14:00)
== END 2019-03-18 13:44 | disposition home health service (06) | DRG 470 ==
LOC: ASU 06:12 → 3E 10:52